=== PATIENT | female | born 1960 | race Caucasian/White ===

== ENCOUNTER 2019-10-14 18:53 | Inpatient (IN) | payer OTHER, SELFPAY ==
[2019-10-14] VITALS (7 sets, daily range): BP systolic 136–149; BP diastolic 64–93; PULSE 66–76; RESP 15–18; TEMP 36.5–37; O2SAT 96–100; BMI 60.6; BMI 59.8; BMI 59.9
--- NOTE | 2019-10-14 19:48 | EKG12_ITS ---
Test Reason : DYSRHYTHMIA Blood Pressure : / mmHG Vent. Rate : 058 BPM Atrial Rate : 058 BPM P-R Int : 152 ms QRS Dur : 146 ms QT Int : 526 ms P-R-T Axes : 026 042 116 degrees QTc Int : 516 ms Sinus bradycardia Right bundle branch block T wave abnormality, consider lateral ischemia Abnormal ECG Confirmed by GHASSAN KESSLER ([id number]), photography editor JANET LIU ([id number]) on 10/18/2019 9:25:24 AM Referred By: Confirmed By:GHASSAN KESSLER
--- NOTE | 2019-10-14 19:48 | RAD_ITS ---
STUDY: X-RAY CHEST REASON FOR EXAM: Female, 58 years old. SOB TECHNIQUE: Single frontal view of the chest. COMPARISON: March 03, 2017 FINDINGS: There is no new focal consolidation. Normal size heart. Normal mediastinum and nandini. Normal visualized pulmonary arteries. Normal visualized aortic arch and descending thoracic aorta. There are diffuse degenerative changes of the visualized thoracic spine. Normal visualized ribs, clavicles, and shoulders. There is no demonstrated abnormality of the visualized soft tissue structures of the upper abdomen. RAD/Chest 1 View (Portable) IMPRESSION: No acute cardiopulmonary process. Electronically Signed: Dianne Oleary MD at 20:07 EST Tel , Service support ,
[2019-10-14 20:38] LABS: Absolute Lymphocyte Count 1.65 X10^3/uL (0.83-4.51); Absolute Neutrophil Count 3.3 X10^3/uL (2.0-7.7); Basophil# 0.05 X10^3/uL; Basophil% 0.9 % (0-1); Eosinophil# 0.19 X10^3/uL; Eosinophils% 3.4 % (0-5); Hematocrit 34.7 % (37-47); Hemoglobin 11.2 g/dL (12.0-15.0); Lymphocyte # 1.65 X10^3/ul (4.0); Lymphocyte % 29.3 % (19-41); Mean Corp Hgb Conc 32.3 g/dL (32-36); Mean Platelet Vol. 10.5 fl (6.2-12.0); Monocyte# 0.45 X10^3/uL; NRBC Flagged by Analyzer 0 % (0-5); Neutrophil # 3.29 X10^3/uL (2.7-7.7); Neutrophil % 58.2 % (47-70); Platelet Count 186 K/mm3 (150-450); RBC Distribution Width CV 15.5 % (11.6-14.6); RBC Distribution Width SD 53.1 fl (35.1-43.9); Red Blood Count 3.73 M/mm3 (4.2-5.4); White Blood Count 5.6 K/mm3 (4.4-11.0)
--- NOTE | 2019-10-14 20:42 | ED.VISSUMM ---
- ER Visit Summary Date of Service: 10/14/19 Chief Complaint: Shortness of breath History of Present Illness: The patient is a 58 F presenting with shortness of breath. Patient states she has had increasing lower extremity swelling for the past 3 weeks. She has gained 18 pounds in the past 3 weeks. She has been more short of breath today. Shortness of breath is worsened with exertion. She denies chest pain. She called her primary care physician and was advised to come to the ED. She is on Lasix but states she does not have a history of CHF. She does not have home O2. Physical Examination: Vitals are stable. Patient is afebrile. Alert no acute distress. HEENT exam is unremarkable. Neck is supple. Lungs are clear and equal bilaterally. Heart is regular rate and rhythm. Abdomen is soft nontender nondistended. Extremities symmetric edema Skin is warm and dry. No focal neurologic deficit. Remainder of exam is unremarkable. Emergency Department Course and Treatment: EKG is sinus bradycardia rate of 58 with lateral T wave inversion, changed from previous. Chest x-ray shows no acute cardiopulmonary process. CBC shows hemoglobin 11.2. Chemistries show potassium 3.0. Troponin 0.022. She was given potassium oral replacement. She was given Lasix IV. Discussed with the hospitalist for admission. Disposition: Admission Impression: Dyspnea on exertion, peripheral edema, EKG changes This note was generated with [employer] dictation software. It may contain incorrect words, spelling, and punctuation that were not noted in review of the chart prior to signing ED Disposition - Plan for ED Patient: Referrals: Doris Pimentel MD [Primary Care Provider] -
[2019-10-14 20:43] LABS: Anion Gap 6 (5-15); BUN 13 mg/dL (7-18); BUN/Creat Ratio 15.9 RATIO (10-20); Calcium,Total 8.7 mg/dL (8.5-10.1); Chloride 111 mmol/L (98-107); Creatinine, Serum 0.82 mg/dL (0.55-1.02); EST Glomerular Filtration Rate 76 mL/min (>60); Est Glom Filt Rate - Afr Amer 92 mL/min (>60); Estimated Creatinine Clearance 55.74 ml/min; Glucose 91 mg/dL (74-106); Sodium Level 143 mmol/L (136-145)
[2019-10-14 21:08] LABS: BNP,B-Type NATRIURETIC PEPTIDE 225.1 pg/mL (0-100)
--- NOTE | 2019-10-14 21:22 | PCM.HP.STD ---
Problem List (1) Heart failure Status: Suspected History of Present Illness Date of Admission: 10/14/19 Chief Complaint: BATISTA The patient is a 58 year old F with a significant history of morbid obesity; and peripheral edema on p.o. Lasix who presented to the emergency department with dyspnea on exertion that started about 2 weeks ago and worsened on the day of presentation. Also patient think that her bilateral lower extremity edema has worsened. Further she reports a weight gain of 18 pounds in the last 3 weeks. She denies any orthopnea or paroxysmal nocturnal dyspnea. Past Medical History Medical History: Medical History (Last Updated 10/14/19 @ 22:03 by Leobardo Patton MD) Morbid (severe) obesity due to excess calories E66.01 Allergies naproxen [From Naprosyn] Allergy (Mild, Verified 10/14/19 18:57) Swelling rofecoxib [From Vioxx] Allergy (Mild, Verified 10/14/19 18:57) Swelling aspirin Adverse Reaction (Verified 10/14/19 18:57) Upset Stomach Home Medications: Ambulatory Orders Medication Instructions Recorded Calcium Carbonate/Vitamin D3 1 each PO DAILY 10/21/13 [Calcium 600 + Vit D3 Tablet] Furosemide [Lasix] 40 mg PO DAILY 10/21/13 Multivitamins,Therapeutic 1 tablet PO DAILY 10/21/13 [Multivitamin] Omeprazole [Prilosec] 20 mg PO DAILY 10/21/13 Potassium Chloride [K-Dur] 20 meq PO QODAY 10/21/13 Surgical History: - - Laser surgery of the eye; multiple D&Cs. Lives: With Family Smoking Status: Never smoker Drugs: None - *Family History Maternal History Items: Heart Disease Paternal History Items: Cancer, Heart Disease Review of Systems Constitutional: Reports: Weight Change - 18 pounds weight gain in 3 weeks.. Denies: Chills, Fever HEENT: Denies: Head Aches, Sinus Congestion, Sinus Drainage Cardiovascular: Reports: Edema. Denies: Chest Pain, Palpitations Respiratory: Reports: Shortness of breath upon exertion. Denies: Cough, Shortness of breath at rest, Sputum production Gastrointestinal: Denies: Abdominal Pain, Nausea, Vomiting Genitourinary: Denies: Dysuria Musculoskeletal: Denies: Joint Pain, Joint Tenderness Skin: Denies: Rash, Wounds Neurological: Denies: Numbness, Tingling, Focal weakness Psychiatric: Denies: Anxiety, Depression, Homicidal Ideations, Suicidal Ideations Hematologic/ Lymphatic: Denies: Easy Bruising, Easy Bleeding VTE Information - Inpt Only VTE Present on Admission: No VTE Mechan Device Prophylaxis: None VTE Pharm Prophylaxis ordered?: Yes Patient Problems: Active and Suspected Problems (Last Updated 10/14/19 @ 22:03 by Leobardo Patton MD) Heart failure (Suspected) - Physical Exam Vitals/I&O's: Vital Signs Temp Pulse Resp BP Pulse Ox 98.6 F 67 15 142/65 H 96 10/14/19 18:54 10/14/19 20:23 10/14/19 20:23 10/14/19 20:23 10/14/19 20:23 Oxygen Delivery Method Room Air Weight: 145.6 kg Body Mass Index (BMI) 60.6 General: Alert, Oriented x3, Cooperative, - - Obese HEENT: Atraumatic, PERRLA, EOMI, Normocephalic Neck: Supple, No JVD, Negative Carotid Bruits Lungs: Clear to auscultation, Normal air movement Cardiovascular: Regular rate, Normal S1, Normal S2, No murmurs Abdomen: Bowel Sounds Present, Soft, Non Tender Extremities: Capillary Refill Less than 3 Seconds, Edema - biateral lower ext; right more than left Skin: No breakdown, - - Maculopapular rash on face Musculoskeletal: No Tenderness to Palpation of Joints or Extremities Neurological: Cranial nerves II-XII grossly intact Psych/Mental Status: Normal Affect, Appropriate Laboratory Results 10/14/19 20:20: WBC 5.6, RBC 3.73 L, Hgb 11.2 L, Hct 34.7 L, MCV 93.0, MCH 30.0, MCHC 32.3, RDW Std Deviation 53.1 H, RDW Coeff of Wolf 15.5 H, Plt Count 186, MPV 10.5, Immature Gran % (Auto) 0.200, Neut % (Auto) 58.2, Lymph % (Auto) 29.3, Smyth % (Auto) 8.0, Eos % (Auto) 3.4, Baso % (Auto) 0.9, Absolute Neuts (auto) 3.3, Absolute Lymphs (auto) 1.65, Nucleated RBC % 0 10/14/19 20:20: Sodium 143, Potassium 3.0 L, Chloride 111 H, Carbon Dioxide 26.0, Anion Gap 6, BUN 13, Creatinine 0.82, Estim Creat Clear Calc 55.74, Est GFR (MDRD) Af Amer 92, Est GFR (MDRD) Non-Af 76, BUN/Creatinine Ratio 15.9, Glucose 91, Calcium 8.7, Troponin I 0.022 10/14/19 20:20: B-Natriuretic Peptide 225.1 H Assessment/Plan The patient is a 58 year old F with a significant history of morbid obesity; and peripheral edema on p.o. Lasix who presented to the emergency department with dyspnea on exertion that started about 2 weeks ago and worsened on the day of presentation; weight gain of 18 pounds in the last 3 weeks; and worsening of peripheral edema consistent with probable new onset Heart Failure and also found to have new T wave inversions in lateral leads. Probable heart failure Chest x-ray interpreted by me showed vascular congestion Place on monitored bed on PCU Weight on admission to the floor; and then daily BMP is 225.1 Strict I&O's EKG independently reviewed confirms T wave inversion in leads I and aVL changed from previous. And unchanged T wave inversion in leads V1 and V2. Emergency department labs reviewed showed hypokalemia. Discussed with emergency department doctor who will replace potassium. On home Lasix 40 mg daily. Discussed emergent department doctor will give patient Lasix 40 mg IV. Diuresis with Lasix 40 mg IV twice daily and supplement potassium. Monitor electrolytes and renal function Trend blood pressure Michael wrap to bilateral lower extremities. Elevate bilateral lower extremities Fluid restriction of 1500 mls daily 2 g cardiac diet Discussed the case with client server programmer, Dr. Shah who will follow patient. Patient will be n.p.o. after midnight. T wave inversion Patient is allergic to aspirin. Repeat EKG. Check lipid levels. Morbid obesity Lifestyle modification discussed. DVT prophylaxis Heparin subcutaneous. Code Visit Inpatient E&M: 88004 Init Hosp L3
[2019-10-14] MEDS: Furosemide 40 MG/4 ML Vial IV (21:39)
[2019-10-14] MEDS: Heparin Injection (Vial) 5,000 UNIT/ML VIAL 5000 UNIT SC (23:34)
[2019-10-15] VITALS (10 sets, daily range): BP systolic 129–146; BP diastolic 61–97; PULSE 66–94; RESP 16–18; TEMP 36.6–37.4; O2SAT 93–100
[2019-10-15 02:14] LABS: Absolute Lymphocyte Count 1.57 X10^3/uL (0.83-4.51); Absolute Neutrophil Count 2.5 X10^3/uL (2.0-7.7); Basophil# 0.05 X10^3/uL; Basophil% 1.1 % (0-1); Eosinophils% 4.3 % (0-5); Hematocrit 32.2 % (37-47); Hemoglobin 10.4 g/dL (12.0-15.0); Lymphocyte # 1.57 X10^3/ul (4.0); Lymphocyte % 33.5 % (19-41); Mean Corp Hgb Conc 32.3 g/dL (32-36); Mean Corpuscular Hgb 30.5 pg (27.0-32.0); Mean Corpuscular Volume 94.4 fL (81-99); Mean Platelet Vol. 10.2 fl (6.2-12.0); Monocyte# 0.32 X10^3/uL; Monocyte% 6.8 % (0-10); NRBC Flagged by Analyzer 0 % (0-5); Neutrophil # 2.54 X10^3/uL (2.7-7.7); Neutrophil % 54.1 % (47-70); Platelet Count 161 K/mm3 (150-450); RBC Distribution Width CV 15.4 % (11.6-14.6); RBC Distribution Width SD 53.4 fl (35.1-43.9); Red Blood Count 3.41 M/mm3 (4.2-5.4); White Blood Count 4.7 K/mm3 (4.4-11.0)
[2019-10-15 02:39] LABS: Anion Gap 5 (5-15); BUN 11 mg/dL (7-18); BUN/Creat Ratio 15.6 RATIO (10-20); Calcium,Total 8.1 mg/dL (8.5-10.1); Chloride 113 mmol/L (98-107); Cholesterol 161 mg/dL (200); Creatinine, Serum 0.71 mg/dL (0.55-1.02); EST Glomerular Filtration Rate 90 mL/min (>60); Est Glom Filt Rate - Afr Amer 109 mL/min (>60); Estimated Creatinine Clearance 64.38 ml/min; Glucose 89 mg/dL (74-106); High Density Lipoprotein 44 mg/dL; Potassium 3.2 mmol/L (3.5-5.1); Sodium Level 146 mmol/L (136-145); Triglycerides 77 mg/dL; Very Low Density Lipoprotein 15 mg/dL (5-40)
[2019-10-15] MEDS: Heparin Injection (Vial) 5,000 UNIT/ML VIAL 5000 UNIT SC ×3 (05:52→21:16)
--- NOTE | 2019-10-15 07:57 | ECHOD_ITS ---
Reason For Study: Dyspnea/SOB Procedure This was a 2D Doppler, Color Flow transthoracic echocardiogram. Exam performed portable in patient room. Left Ventricle Normal LV size. Mild concentric left ventricular hypertrophy. Left ventricular systolic function is normal. The estimated ejection fraction is 60 %. No regional wall motion abnormalities noted. Right Ventricle Normal RV size. Normal systolic function. Atria The left atrium is mildly enlarged. Normal right atrium. Mitral Valve Normal mitral valve. Mild (1+) eccentric mitral valve insufficiency. Tricuspid Valve Normal tricuspid valve. Aortic Valve Normal aortic valve. Trisinus/trileaflet aortic valve. Pulmonic Valve Normal pulmonic valve. Great Vessels Normal aortic root. The pulmonary artery is normal size. Normal inferior vena cava. Pericardium/Pleural No pericardial effusion. MMode/2D Measurements & Calculations LVIDd: 4.9 cm IVSd: 1.2 cm Ao root diam: 3.2 cm LVIDs: 3.1 cm LVPWd: 1.3 cm LA dimension: 4.9 cm FS: 37.6 % LAV(MOD-bp): 97.0 ml LA A4 area: 23.1 cm2 RA A4 area: 19.0 cm2 LAV(MOD-bp) Indexed: 42.3 ml/m2 LAV(MOD-sp2): 94.5 ml LAV(MOD-sp4): 82.6 ml Time Measurements MV dec time: 0.22 sec Doppler Measurements & Calculations MV E max pj: 97.8 cm/sec Lat Peak E' Pj: 13.8 cm/sec Med Peak E' Pj: 8.8 cm/sec MV A max pj: 81.5 cm/sec E/E' lat: 7.1 E/E' med: 11.1 MV E/A: 1.2 MV V2 max: 130.3 cm/sec MV P1/2t max pj: 128.6 cm/sec Ao V2 max: 159.4 cm/sec MV max P.8 mmHg MV P1/2t: 78.3 msec Ao max P.2 mmHg MV V2 mean: 66.4 cm/sec MV dec slope: 480.8 cm/sec2 MV mean P.1 mmHg MVA(P1/2t): 2.8 cm2 MV V2 VTI: 33.6 cm LV V1 max: 122.1 cm/sec MR max pj: 542.6 cm/sec PA V2 max: 137.7 cm/sec LV V1 max P.0 mmHg MR max P.7 mmHg MR mean pj: 435.3 cm/sec MR mean P.9 mmHg MR VTI: 196.6 cm Interpretation Summary Normal LV size. Mild concentric left ventricular hypertrophy. Left ventricular systolic function is normal. The estimated ejection fraction is 60 %. Mild (1+) eccentric mitral valve insufficiency. Ordering Physician: Jason Shah Referring Physician: Doris Pimentel Performed By: Jose Braden RCS
--- NOTE | 2019-10-15 07:59 | CON.PCM_ITS ---
Reason for Consult Date of Consultation: 10/15/19 Reason for Consultation: Shortness of breath and EKG changes History of Present Illness: The patient is a 58 year old F with no previous cardiac history other than hypertension who says that she has been increasingly short of breath over the last 3 weeks or so as well as has developed pedal edema. She went to see her primary physician and was advised to come to the emergency room. She denies any chest pain or paroxysmal nocturnal dyspnea. She has had a cough. She was seen in the emergency room blood work done an EKG was also done. She was noted to have T wave inversions in the lateral leads and I was called for consultation and consideration of a possible stress test. [] Past Medical History Allergies/Adverse Reactions: Allergies naproxen [From Naprosyn] Allergy (Mild, Verified 10/14/19 18:57) Swelling rofecoxib [From Vioxx] Allergy (Mild, Verified 10/14/19 18:57) Swelling aspirin Adverse Reaction (Verified 10/14/19 18:57) Upset Stomach Home Medications: Ambulatory Orders Medication Instructions Recorded Calcium Carbonate/Vitamin D3 1 each PO DAILY 10/21/13 [Calcium 600 + Vit D3 Tablet] Furosemide [Lasix] 40 mg PO DAILY 10/21/13 Multivitamins,Therapeutic 1 tablet PO DAILY 10/21/13 [Multivitamin] Omeprazole [Prilosec] 20 mg PO DAILY 10/21/13 Potassium Chloride [K-Dur] 20 meq PO QODAY 10/21/13 Surgical History: - - Laser surgery of the eye; multiple D&Cs. - *Family History Maternal History Items: Heart Disease Paternal History Items: Cancer, Heart Disease Lives: With Family Smoking Status: Never smoker Alcohol: None Drugs: None Review of Systems - Review of Systems General: Denies: Fever, Night Sweats, Fatigue HEENT: Denies: Vision Change Cardiovascular: Reports: Shortness of Breath, Shortness of Breath at Rest, Shortness of Breath with Exertion, Peripheral Edema. Denies: Chest Discomfort, Orthopnea, PND, Palpitations, Lightheadedness, Dizziness, Near Syncope, Syncope Respiratory: Denies: Cough, Sputum Production, Hemoptysis Gastrointestinal: Denies: Hematemesis, Hematochezia, Melena Genitourinary: Denies: Dysuria, Hematuria Muscoloskeletal: Denies: Myalgias Skin: Denies: Rash Neurological: Denies: Dizziness Psychiatric: Denies: Anxiety Endocrine: Denies: Heat Intolerance Hematologic/ Lymphatic: Denies: Lymph Node Enlargement Subjectve: Patient seen and evaluated. Objective: Vital Signs Temp Pulse Resp BP Pulse Ox 97.8 F 77 16 129/64 H 95 10/15/19 04:55 10/15/19 06:50 10/15/19 04:55 10/15/19 04:55 10/15/19 04:55 Oxygen Delivery Method Room Air Weight: 315 lb 11.231 oz Body Mass Index (BMI) 59.8 Intake and Output for Last 24 Hours 10/13/19 10/14/19 10/15/19 23:59 23:59 23:59 Output Total 400 / 400 Balance -400 / -400 General: Awake, Alert, Oriented x 3 HEENT: PERRL, EOMI, Sclera Non Icteric Neck: Supple, Good ROM, No Lymph Node Enlargement Lungs: Diminished Iggy Bases Cardiovascular: Regular Rhythm, Normal S1, Normal S2, No Murmurs, No Rubs, No Gallops Vascular: No Carotid Bruits, Normal Femoral Pulses, Normal Radial Pulses, Normal Dorsalis Pedal Pulse, Normal Posterior Tibial Pulses Abdomen: Bowel Sounds Present, Soft, Non Tender, No HSM, No Organomegaly Extremities: No Cyanosis, No Clubbing, Bilateral Edema +1 Musculoskeletal: No Erythema Skin: No Rashes Lymphatic: No Lymph Node Enlargement Neurological: No Focal Motor or Sensory Deficit Psych/Mental Status: Appropriate 10/14/19 20:20: WBC 5.6, RBC 3.73 L, Hgb 11.2 L, Hct 34.7 L, MCV 93.0, MCH 30.0, MCHC 32.3, Plt Count 186, MPV 10.5, Immature Gran % (Auto) 0.200, Neut % (Auto) 58.2, Lymph % (Auto) 29.3, [place] % (Auto) 8.0, Eos % (Auto) 3.4, Baso % (Auto) 0.9, Absolute Neuts (auto) 3.3, Nucleated RBC % 0 10/14/19 20:20: Sodium 143, Potassium 3.0 L, Chloride 111 H, Carbon Dioxide 26.0, Anion Gap 6, BUN 13, Creatinine 0.82, Est GFR (MDRD) Af Amer 92, Est GFR (MDRD) Non-Af 76, BUN/Creatinine Ratio 15.9, Glucose 91, Calcium 8.7, Troponin I 0.022 10/14/19 20:20: B-Natriuretic Peptide 225.1 H 10/14/19 23:18: Troponin I 0.019 10/15/19 02:03: Sodium 146 H, Potassium 3.2 L, Chloride 113 H, Carbon Dioxide 28.0, Anion Gap 5, BUN 11, Creatinine 0.71, Est GFR (MDRD) Af Amer 109, Est GFR (MDRD) Non-Af 90, BUN/Creatinine Ratio 15.6, Glucose 89, Calcium 8.1 L, Triglycerides 77, Cholesterol 161, LDL Cholesterol 102, VLDL Cholesterol 15, HDL Cholesterol 44 10/15/19 02:03: WBC 4.7, RBC 3.41 L, Hgb 10.4 L, Hct 32.2 L, MCV 94.4, MCH 30.5, MCHC 32.3, Plt Count 161, MPV 10.2, Immature Gran % (Auto) 0.200, Neut % (Auto) 54.1, Lymph % (Auto) 33.5, [place] % (Auto) 6.8, Eos % (Auto) 4.3, Baso % (Auto) 1.1 H, Absolute Neuts (auto) 2.5, Nucleated RBC % 0 10/15/19 02:03: Troponin I 0.024 Rhythm: EKG: Normal sinus rhythm with T wave inversions noted in 1 and aVL. Prolonged QT interval noted ECHO: Stress Test: Cardiac Cath: PCI: CT Surgery: Holter monitor: EPS: PPM: CXR: Chest CT Scan: Assessment/Plan 1. Shortness of breath * Patient presents with shortness of breath and pedal edema and is noted to have an elevated natruretic peptide level. Due to her obesity it is likely that her natruretic peptide level is falsely low. I would like us to obtain an echocardiogram to assess her left ventricular function. Depending on the results further recommendations will be made to decide on the appropriate medications. * She will in the meantime continue with her intravenous Lasix. * 2. Abnormal EKG changes * She is noted to have abnormal EKG changes which is likely secondary to the hypokalemia with prolonged QT interval. * Would replace potassium and magnesium and repeat EKG. * At this particular time I do not think that her EKG changes are suggestive of ischemia and a stress test is not necessarily warranted. * * Thank you for allowing me to participate in the care of your patient. Please don't hesitate to call if any issues arise
[2019-10-15 08:30] LABS: Magnesium 2.1 mg/dL (1.6-2.6)
[2019-10-15] MEDS: Calcium Carb/Vitamin D 1 TABLET Tablet PO (09:28)
[2019-10-15] MEDS: Furosemide 40 MG/4 ML Vial IV ×2 (09:28→17:03)
[2019-10-15] MEDS: 0.9% Saline Lock 10 ML Syringe IV ×2 (09:28→17:03)
[2019-10-15] MEDS: Multivitamins,Therapeutic Tablet 1 TABLET PO (09:28)
[2019-10-15] MEDS: Pantoprazole Sodium 20 MG Tablet PO (09:28)
--- NOTE | 2019-10-15 09:37 | PN_ITS ---
Patient Problems: Active and Suspected Problems (Last Updated 10/14/19 @ 22:03 by Leobardo Patton MD) Heart failure (Suspected) Subjective: Feels little bit better, less short of breath and states that her swelling is little bit improved Vitals/I&O's: Vital Signs Temp Pulse Resp BP Pulse Ox 98.1 F 66 16 134/68 H 94 10/15/19 09:21 10/15/19 09:21 10/15/19 09:21 10/15/19 09:21 10/15/19 09:21 Oxygen Delivery Method Room Air Weight: 315 lb 11.231 oz Body Mass Index (BMI) 59.8 Intake and Output for Last 24 Hours 10/13/19 10/14/19 10/15/19 23:59 23:59 23:59 Output Total 400 / 400 Balance -400 / -400 General: Alert, Oriented x3, Cooperative, No apparent distress HEENT: Atraumatic, PERRLA, EOMI, Normocephalic Oral: Moist Mucosa Neck: Supple, No JVD Lungs: Clear to auscultation, Normal air movement, No rhonchi, No wheeze, No rales, Diminished Cardiovascular: Regular rate, Regular Rhythm, Normal S1, Normal S2, No murmurs Abdomen: Soft, Non Tender, Non-Distended, No Hepato-splenomegaly Extremities: Capillary Refill Less than 3 Seconds, Edema - 1+ pitting edema bilaterally Skin: No rashes, No breakdown Neurological: Neuro grossly intact, Sensory exam intact to light touch and pain Psych/Mental Status: Normal Affect, Appropriate Laboratory Results 10/14/19 20:20: WBC 5.6, RBC 3.73 L, Hgb 11.2 L, Hct 34.7 L, MCV 93.0, MCH 30.0, MCHC 32.3, RDW Std Deviation 53.1 H, RDW Coeff of Wolf 15.5 H, Plt Count 186, MPV 10.5, Immature Gran % (Auto) 0.200, Neut % (Auto) 58.2, Lymph % (Auto) 29.3, Payne % (Auto) 8.0, Eos % (Auto) 3.4, Baso % (Auto) 0.9, Absolute Neuts (auto) 3.3, Absolute Lymphs (auto) 1.65, Nucleated RBC % 0 10/14/19 20:20: Sodium 143, Potassium 3.0 L, Chloride 111 H, Carbon Dioxide 26.0, Anion Gap 6, BUN 13, Creatinine 0.82, Estim Creat Clear Calc 55.74, Est GFR (MDRD) Af Amer 92, Est GFR (MDRD) Non-Af 76, BUN/Creatinine Ratio 15.9, Glucose 91, Calcium 8.7, Troponin I 0.022 10/14/19 20:20: B-Natriuretic Peptide 225.1 H 10/14/19 23:18: Troponin I 0.019 10/15/19 02:03: Sodium 146 H, Potassium 3.2 L, Chloride 113 H, Carbon Dioxide 28.0, Anion Gap 5, BUN 11, Creatinine 0.71, Estim Creat Clear Calc 64.38, Est GFR (MDRD) Af Amer 109, Est GFR (MDRD) Non-Af 90, BUN/Creatinine Ratio 15.6, Glucose 89, Calcium 8.1 L, Triglycerides 77, Cholesterol 161, LDL Cholesterol 102, VLDL Cholesterol 15, HDL Cholesterol 44 10/15/19 02:03: WBC 4.7, RBC 3.41 L, Hgb 10.4 L, Hct 32.2 L, MCV 94.4, MCH 30.5, MCHC 32.3, RDW Std Deviation 53.4 H, RDW Coeff of Wolf 15.4 H, Plt Count 161, MPV 10.2, Immature Gran % (Auto) 0.200, Neut % (Auto) 54.1, Lymph % (Auto) 33.5, Payne % (Auto) 6.8, Eos % (Auto) 4.3, Baso % (Auto) 1.1 H, Absolute Neuts (auto) 2.5, Absolute Lymphs (auto) 1.57, Nucleated RBC % 0 10/15/19 02:03: Troponin I 0.024 10/15/19 02:03: Magnesium 2.1 Current Medications Acetaminophen (Tylenol) 650 mg PO Q6H PRN PRN PRN Reason: Pain Score 1-10/Temp > 100.7 F Calcium/Vitamin D (Os-Pedro Pablo 500mg + D) 1 tablet PO DAILY [facility] Last Admin: 10/15/19 09:28 Dose: 1 tablet Documented by: Furosemide (Lasix) 40 mg IV BIDLX [facility] Last Admin: 10/15/19 09:28 Dose: 40 mg Documented by: Glucagon () 1 mg IM .X1 PRN PRN Reason: Hypoglycemia Heparin Sodium (Porcine) (Heparin Na) 5,000 unit SC Q8 [facility] Last Admin: 10/15/19 05:52 Dose: 5,000 unit Documented by: Dextrose (Dextrose 10%-Water) 250 mls @ 999 mls/hr IV .Q16M PRN; Protocol PRN Reason: HYPOGLYCEMIA [facility] Admin: 10/15/19 09:28 Dose: 1 tablet Documented by: Ondansetron HCl (Zofran) 4 mg IV Q8H PRN PRN PRN Reason: NAUSEA/VOMITING Pantoprazole Sodium (Protonix) 20 mg PO DAILY [facility] Last Admin: 10/15/19 09:28 Dose: 20 mg Documented by: Potassium [facility]) [facility] Last Admin: 10/15/19 09:27 Dose: 40 meq Documented by: Sodium Chloride () 10 - 40 ml IV UD PRN PRN Reason: SALINE FLUSH Last Admin: 10/15/19 09:28 Dose: 20 ml Documented by: STROKE Vital Signs/Narrative: Vital Signs Temp Pulse Resp BP Pulse Ox 10/15/19 09:21 98.1 F 66 16 134/68 H 94 10/15/19 08:09 95 10/15/19 06:50 77 Medical Necessity - Tobacco Use Smoking Status: Never smoker Assessment/Plan 1. Shortness of breath likely secondary to heart failure of unknown type/hypokalemia -We will continue with IV Lasix and fluid restriction 1500 cc -An echo is pending -Was unremarkable however her BNP was elevated -EKG with T wave inversions otherwise no signs of ischemia -Based on body weight she is down about 5 pounds -Continue with twice daily potassium repletion 2. Morbid obesity -BMI is over 50 -We will put her on a significant calorie restriction of 1400 pedro pablo a day as a cardiac diet -Counseled on lifestyle modifications and weight loss 3. GERD -Stable -Continue with PPI DVT: Heparin Code Visit Inpatient E&M: 02657 Subs Hosp L2
[2019-10-15] MEDS: Potassium Chloride 10mEq/100mL 10 MEQ/100 ML IV.SOLN. 100 MEQ IV BOLUS (10:09)
--- NOTE | 2019-10-15 13:05 | CASEMGMT ---
RN CM Assessment Note Presentation: CHF, dyspnea, weight gain 18 # over past 3 weeks, extremity edema Intro role of CM and purpose of RN CM assessment to patient in room. Demographics, PCP and Pharmacy verified. PT states she is independent at home, works, drives. PT/OT evaluations pending. Pt states she has a scale, noted significant weight gain and edema, but did not f/u with physician. Pt states she will be more aware on dc of following any weight gain or increased edema and contacting physician sooner. No oxyen use at home or presently in hospital. PCP: Dr. Pimentel Specialists: Dr. Shah [facility] M[facility] Prescription Benefit: yes LNOK: Bryan Dougherty, Living Arrangements: Lives in one story, ramp into home. Pt states she is generally independent with ADL. Has difficulty getting into tub/shower. No grab bars. Discussed tub bench, however pt states her bathroom is small and it would be in way. Also discussed benefits of grab bars for shower. Pt was going to have tub/shower converted to shower last year, but states now she does not have the money for this. Transportation: Drives, or son can drive DME: walker only. HHC/SNF: none in past per pt. Patient DC goals: Home on dc DC PLAN: Home on dc. PT/OT evaluations pending. Guille SINGER RN ACM
--- NOTE | 2019-10-15 15:25 | CHAPLAIN ---
Type of Pastoral Visit _x__ Initial Visit ___ Follow-up Visit ___ On-call Visit ___ General Patient Visit ___ Spiritual Assessment ___ Family Conference ___ Bereavement ___ Rapid Response ___ Code Blue ___ Other (describe below) Pastoral Care Referral From _x__ Patient ___ Family ___ Nurse ___ Physician ___ Bottom Worker ___ Pipe Or Steam Fitter Furnace Installer ___ Other (describe below) Sacrament/Intervention _x__ Active listening ___ Anointing ___ Baptist ___ Bereavement ___ Communion _x__ Estrella exploration ___ _x__ Life review _x__ Prayer ___ Reconciliation ___ Sacrament of Sick _x__ Supportive presence ___ Wedding ___ Other (describe below) Pastoral Comments called her mobile practice lead and islam as requested
[2019-10-16] VITALS (7 sets, daily range): BP systolic 132–143; BP diastolic 65–74; PULSE 62–78; RESP 16–18; TEMP 36.4–36.9; O2SAT 93–100
[2019-10-16 04:31] LABS: Absolute Lymphocyte Count 1.39 X10^3/uL (0.83-4.51); Absolute Neutrophil Count 3.3 X10^3/uL (2.0-7.7); Basophil# 0.04 X10^3/uL; Basophil% 0.8 % (0-1); Eosinophil# 0.09 X10^3/uL; Eosinophils% 1.7 % (0-5); Hematocrit 36.5 % (37-47); Hemoglobin 11.1 g/dL (12.0-15.0); Lymphocyte # 1.39 X10^3/ul (4.0); Lymphocyte % 26.2 % (19-41); Mean Corp Hgb Conc 30.4 g/dL (32-36); Mean Corpuscular Hgb 29.8 pg (27.0-32.0); Mean Corpuscular Volume 97.9 fL (81-99); Mean Platelet Vol. 10.3 fl (6.2-12.0); Monocyte# 0.51 X10^3/uL; Monocyte% 9.6 % (0-10); NRBC Flagged by Analyzer 0 % (0-5); Neutrophil # 3.26 X10^3/uL (2.7-7.7); Neutrophil % 61.5 % (47-70); Platelet Count 167 K/mm3 (150-450); RBC Distribution Width CV 15.1 % (11.6-14.6); Red Blood Count 3.73 M/mm3 (4.2-5.4); White Blood Count 5.3 K/mm3 (4.4-11.0)
[2019-10-16] MEDS: Heparin Injection (Vial) 5,000 UNIT/ML VIAL 5000 UNIT SC ×2 (05:06→13:50)
[2019-10-16 05:13] LABS: Anion Gap 4 (5-15); BUN 12 mg/dL (7-18); BUN/Creat Ratio 17.2 RATIO (10-20); Calcium,Total 8.1 mg/dL (8.5-10.1); Chloride 114 mmol/L (98-107); EST Glomerular Filtration Rate 91 mL/min (>60); Est Glom Filt Rate - Afr Amer 111 mL/min (>60); Glucose 86 mg/dL (74-106); Potassium 3.9 mmol/L (3.5-5.1); Sodium Level 140 mmol/L (136-145)
[2019-10-16] MEDS: Calcium Carb/Vitamin D 1 TABLET Tablet PO (09:16)
[2019-10-16] MEDS: Furosemide 40 MG/4 ML Vial IV (09:16)
[2019-10-16] MEDS: Multivitamins,Therapeutic Tablet 1 TABLET PO (09:16)
[2019-10-16] MEDS: Pantoprazole Sodium 20 MG Tablet PO (09:16)
[2019-10-16] MEDS: 0.9% Saline Lock 10 ML Syringe IV (09:16)
--- NOTE | 2019-10-16 12:51 | SUR.HOLD ---
Type of Pastoral Visit ___ Initial Visit _x__ Follow-up Visit ___ On-call Visit ___ General Patient Visit ___ Spiritual Assessment ___ Family Conference ___ Bereavement ___ Rapid Response ___ Code Blue ___ Other (describe below) Pastoral Care Referral From _x__ Patient ___ Family ___ Nurse ___ Physician ___ Lacquer Maker ___ Jewelry Casting Model Maker ___ Other (describe below) Sacrament/Intervention _x__ Active listening ___ Anointing ___ Mormon ___ Bereavement ___ Communion ___ Estrella exploration ___ ___ Life review _x__ Prayer ___ Reconciliation ___ Sacrament of Sick _x__ Supportive presence ___ Wedding ___ Other (describe below) Pastoral Comments
--- NOTE | 2019-10-16 15:20 | DCINST_ITS ---
You will use the following diet at home:: Calorie/Carbohydrate Controlled (specify 1200, 1400, etc) - 1400, Cardiac, Fluid restricted (specify 2000 mls, 1500 mls) - 1500 Your food should be the consistency of: Regular Your liquids should be the consistency of: Regular/Thin Discharge Activity: Return to Normal Activity Call your doctor if you observe: Fever of 101 or Higher, Shortness of breath, Dizziness, Fainting spells, Swelling in the ankles, Chest pain, Increased palpitations (irregular heartbeat) Additional Instructions: Obtain a BMP by your PCP to evaluate your kidney function and potassium Allergies/Adverse Reactions: Allergies naproxen [From Naprosyn] Allergy (Mild, Verified 10/14/19 18:57) Swelling rofecoxib [From Vioxx] Allergy (Mild, Verified 10/14/19 18:57) Swelling aspirin Adverse Reaction (Verified 10/14/19 18:57) Upset Stomach Medications to take at Discharge Calcium Carbonate/Vitamin D3 [Calcium 600-Vit D3 800 Tablet] 1 each PO DAILY 10/21/13 Multivitamins,Therapeutic [Multivitamin] 1 tablet PO DAILY 10/21/13 Omeprazole [Prilosec] 20 mg PO DAILY 10/21/13 Furosemide [Lasix] 40 mg PO BIDLX #60 tab 10/16/19 Potassium Chloride [K-Dur] 20 meq PO DAILY #0 10/16/19 The following prescriptions were given: Furosemide [Lasix] 40 mg PO BIDLX #60 tab Transmission Status: Pending to [facility] Primary Care Physician: Doris Pimentel MD [Primary Care Provider] - Please follow up with your Primary Care Physician in: 3-5 days Test Results: Test results from this visit will be discussed in further detail at your follow- up appointment, if applicable.
--- NOTE | 2019-10-16 15:25 | DS.PCM_ITS ---
Discharge Date and Diagnosis - Problem List Patient Problems: Active and Suspected Problems (Last Updated 10/14/19 @ 22:03 by Leobardo Patton MD) Heart failure (Suspected) Date of Admission: 10/14/19 Date of Discharge: 10/16/19 - Primary Discharge Diagnosis Active and Suspected Problems (Last Updated 10/14/19 @ 22:03 by Leobardo Patton MD) Heart failure (Suspected) Hospital Course and Treatment Imaging Results: CXR: IMPRESSION: No acute cardiopulmonary process. Echo: Interpretation Summary Normal LV size. Mild concentric left ventricular hypertrophy. Left ventricular systolic function is normal. The estimated ejection fraction is 60 %. Mild (1+) eccentric mitral valve insufficiency. Consults: Cardiology Operations: None Procedures: 2-D Echocardiogram Summary of Care Provided: Per HPI: The patient is a 58 year old F with a significant history of morbid obesity; and peripheral edema on p.o. Lasix who presented to the emergency department with dyspnea on exertion that started about 2 weeks ago and worsened on the day of presentation. Also patient think that her bilateral lower extremity edema has worsened. Further she reports a weight gain of 18 pounds in the last 3 weeks. She denies any orthopnea or paroxysmal nocturnal dyspnea. Hospital Course: 1. Acute diastolic heart [id number] female with morbid obesity and peripheral edema presents with increasing shortness of breath and dyspnea on exertion. She states that she was told that to get rid of water she should drink more water and so she had an 18 pound weight gain over the last 3 weeks. She is started on IV Lasix twice daily as well as a fluid restriction and she is down about 10 pounds since admission. Echo demonstrated mild left ventricular concentric hypertrophy with normal EF therefore it was felt that she likely had a component of diastolic heart failure. Will plan for discharge home on Lasix 40 mg p.o. twice daily with follow-up to cardiology as well as her PCP. I do recommend she obtain a BMP as an outpatient by her PCP to evaluate her kidney function as well as her potassium. Her potassium was low on admission and was repleted to a level of 3.9 on the day of discharge. I discussed the discharge plan with her and her family and they all expressed understanding of the risks and benefits of going home. 2. Her other medical diagnoses were evaluated and her home medications were continued where appropriate Patient Problems: Active and Suspected Problems (Last Updated 10/14/19 @ 22:03 by Leobardo Patton MD) Heart failure (Suspected) - Physical Exam Vitals/I&O's: Vital Signs Temp Pulse Resp BP Pulse Ox 97.6 F L 63 16 143/73 H 100 10/16/19 15:10 10/16/19 15:10 10/16/19 15:10 10/16/19 15:10 10/16/19 15:10 Oxygen Flow Rate (L/min) 3 Oxygen Delivery Method Room Air Weight: 307 lb 8.717 oz Body Mass Index (BMI) 59.8 Intake and Output for Last 24 Hours 10/14/19 10/15/19 10/16/19 23:59 23:59 23:59 Intake Total 1100 / 1100 460 / 460 Output Total 1800 / 1800 Balance -700 / -700 460 / 460 General: Alert, Oriented x3, Cooperative, No apparent distress HEENT: Atraumatic, PERRLA, EOMI, Normocephalic Oral: Moist Mucosa Neck: Supple, No JVD Lungs: Clear to auscultation, Normal air movement, No rhonchi, No wheeze, No rales, Diminished Cardiovascular: Regular rate, Regular Rhythm, Normal S1, Normal S2, No murmurs Abdomen: Soft, Non Tender, Non-Distended, No Hepato-splenomegaly Extremities: Capillary Refill Less than 3 Seconds, Edema - 1+ pitting edema bilaterally Skin: No rashes, No breakdown Neurological: Neuro grossly intact, Sensory exam intact to light touch and pain Psych/Mental Status: Normal Affect, Appropriate Laboratory Results 10/16/19 04:16: WBC 5.3, RBC 3.73 L, Hgb 11.1 L, Hct 36.5 L, MCV 97.9, MCH 29.8, MCHC 30.4 L, RDW Std Deviation 54.0 H, RDW Coeff of Wolf 15.1 H, Plt Count 167, MPV 10.3, Immature Gran % (Auto) 0.200, Neut % (Auto) 61.5, Lymph % (Auto) 26.2, [place] % (Auto) 9.6, Eos % (Auto) 1.7, Baso % (Auto) 0.8, Absolute Neuts (auto) 3.3, Absolute Lymphs (auto) 1.39, Nucleated RBC % 0 10/16/19 04:16: Sodium 140, Potassium 3.9, Chloride 114 H, Carbon Dioxide 22.0, Anion Gap 4 L, BUN 12, Creatinine 0.70, Estim Creat Clear Calc 65.30, Est GFR (MDRD) Af Amer 111, Est GFR (MDRD) Non-Af 91, BUN/Creatinine Ratio 17.2, Glucose 86, Calcium 8.1 L Current Medications Acetaminophen (Tylenol) 650 mg PO Q6H PRN PRN PRN Reason: Pain Score 1-10/Temp > 100.7 F Calcium/Vitamin D (Os-Pedro Pablo 500mg + D) 1 tablet PO DAILY [facility] Last Admin: 10/16/19 09:16 Dose: 1 tablet Documented by: Furosemide (Lasix) 40 mg IV BIDLX [facility] Last Admin: 10/16/19 09:16 Dose: 40 mg Documented by: Glucagon () 1 mg IM .X1 PRN PRN Reason: Hypoglycemia Heparin Sodium (Porcine) (Heparin Na) 5,000 unit SC Q8 [facility] Last Admin: 10/16/19 13:50 Dose: 5,000 unit Documented by: Dextrose (Dextrose 10%-Water) 250 mls @ 999 mls/hr IV .Q16M PRN; Protocol PRN Reason: HYPOGLYCEMIA [facility]it[facility] ([facility]itamin) [facility] Admin: 10/16/19 09:16 Dose: 1 tablet Documented by: Ondansetron HCl (Zofran) 4 mg IV Q8H PRN PRN PRN Reason: NAUSEA/VOMITING Pantoprazole Sodium (Protonix) 20 mg PO DAILY [facility] Last Admin: 10/16/19 09:16 Dose: 20 mg Documented by: Potassium Chloride (K-Dur) 40 meq PO BIDCM [facility] Last Admin: 10/16/19 09:16 Dose: 40 meq Documented by: Sodium Chloride () 10 - 40 ml IV UD PRN PRN Reason: SALINE FLUSH Last Admin: 10/16/19 09:16 Dose: 10 ml Documented by: Discharge Activity: Return to Normal Activity Call your doctor if you observe: Fever of 101 or Higher, Shortness of breath, Dizziness, Fainting spells, Swelling in the ankles, Chest pain, Increased palpitations (irregular heartbeat) Home Medications: Medications to take at Discharge Calcium Carbonate/Vitamin D3 [Calcium 600-Vit D3 800 Tablet] 1 each PO DAILY 10/21/13 Multivitamins,Therapeutic [Multivitamin] 1 tablet PO DAILY 10/21/13 Omeprazole [Prilosec] 20 mg PO DAILY 10/21/13 Furosemide [Lasix] 40 mg PO BIDLX #60 tab 10/16/19 Potassium Chloride [K-Dur] 20 meq PO DAILY #0 10/16/19 Following Prescrptions Were Given to Patient: Furosemide [Lasix] 40 mg PO BIDLX #60 tab Transmission Status: Pending to [facility] Primary Care Physician: Doris Pimentel MD [Primary Care Provider] - Please follow up with your Primary Care Physician in: 3-5 days Please Follow Up With: Jason Shah MD When: 4-6 weeks Disposition: Home Minutes spent on discharge:: 35 Patient Condition:: Stable Medical Necessity - Tobacco Use Smoking Status: Never smoker Meaningful Use Info Meaningful Use Diagnoses (Choose all that apply): None applicable Code Visit Inpatient E&M: 50514 Disch Hosp
== END 2019-10-16 15:46 | disposition home or self-care (01) | DRG 291 ==
LOC: ED 19:44 → PCU 22:02
PROVIDERS: Internal Medicine Cardiovascular Disease; Admitting Provider Hospitalist; Emergency Provider Emergency Medicine; PCP Internal Medicine; Visit Provider Family Medicine
DX: I11.0 Hypertensive heart disease with heart failure (principal); I50.31 Acute diastolic (congestive) heart failure; Z68.43 Body mass index [BMI] 50.0-59.9, adult; E87.6 Hypokalemia; E66.01 Morbid (severe) obesity due to excess calories; K21.9 Gastro-esophageal reflux disease without esophagitis; Z88.6 Allergy status to analgesic agent; Z79.899 Other long term (current) drug therapy
CPT/HCPCS: 36415; 71045; 80048; 80061; 83735; 83880; 84484; 85025; 93005; 93306; 97162; 97166; 97530; 97535; 99285; J7040; Q9957; A4216; J1940

== ENCOUNTER 2019-11-17 01:07 | Emergency (ER) | payer OTHER, SELFPAY ==
[2019-10-14 23:01] VITALS: BMI 59.8
[2019-11-17 01:07] VITALS: BP 158/74; PULSE 83; RESP 16; TEMP 36.4; O2SAT 98; BMI 57.5
--- NOTE | 2019-11-17 01:25 | ED.DCSUM_ITS ---
- ER Visit Summary Date of Service: 11/17/19 Chief Complaint: Sent in for low potassium History of Present Illness: The patient is a 59 F 3 diastolic dysfunction on Lasix. Had labs drawn in the last 24 hours which are low potassium was called by her primary care physician and was sent to the emergency department. She denies any vomiting or diarrhea. No fever. Physical Examination: Older female no acute distress vital signs are stable and afebrile. Pulse ox 98% on room air no signs hypoxia. H EENT exam unremarkable. No facial droop. Neck nontender no JVD. No lymphadenopathy. Lungs clear to auscultation bilaterally. Heart regular rhythm rate about 80 no murmur. Abdomen soft nontender normal bowel sounds no peritoneal signs. Patient is moving all 4 extremities. No significant edema. Normal international manager strength bilaterally. Normal dorsi plantarflexion. Neurologically she is awake and alert with no focal motor deficits. Test Results: CBC is unremarkable white count of 7 hemoglobin 12. BMP shows low potassium at 2.7. Normal creatinine of 1 normal gap. Emergency Department Course and Treatment: Due to the patient's low potassium she will be treated with oral potassium here and also IV potassium. She will be discharged home after that. Treatment Plan: She is currently on home potassium. She will double that to 40 mg daily. Follow-up with her primary care physician have her potassium rechecked later this week. Disposition: Discharge Impression: Acute hypokalemia History of CHF on diuretic This note was generated with [employer] dictation software. It may contain incorrect words, spelling, and punctuation that were not noted in review of the chart prior to signing ED Disposition - Plan for ED Patient: Referrals: Doris Pimentel MD [Primary Care Provider] -
[2019-11-17 01:36] LABS: Hematocrit 37.6 % (37-47); Hemoglobin 12.8 g/dL (12.0-15.0); Mean Corpuscular Hgb 31.1 pg (27.0-32.0); Mean Corpuscular Volume 91.3 fL (81-99); Mean Platelet Vol. 10.3 fl (6.2-12.0); Platelet Count 254 K/mm3 (150-450); RBC Distribution Width CV 13.5 % (11.6-14.6); RBC Distribution Width SD 45.8 fl (35.1-43.9); Red Blood Count 4.12 M/mm3 (4.2-5.4); White Blood Count 7.7 K/mm3 (4.4-11.0)
[2019-11-17 01:49] LABS: Anion Gap 7 (5-15); BUN 27 mg/dL (7-18); BUN/Creat Ratio 27.1 RATIO (10-20); Calcium,Total 8.7 mg/dL (8.5-10.1); Chloride 101 mmol/L (98-107); EST Glomerular Filtration Rate 60 mL/min (>60); Est Glom Filt Rate - Afr Amer 73 mL/min (>60); Estimated Creatinine Clearance 45.14 ml/min; Glucose 100 mg/dL (74-106); Potassium 2.7 mmol/L (3.5-5.1); Sodium Level 139 mmol/L (136-145)
--- NOTE | 2019-11-17 01:57 | ED.DEP ---
ED Disposition - Plan for ED Patient: Disposition: Home or Assisted Living Instructions: Hypokalemia Referrals: Doris Pimentel MD [Primary Care Provider] - 5-7 Days Additional Instructions: Follow-up with your doctor later this week to have your potassium rechecked. Tonight in the emergency department your potassium level was 2.7. You are currently on potassium at home. You normally take 20 mEq once a day. Double that to 40 mEq once a day. You can take 2 pills at once or take 1 pill twice a day.
--- NOTE | 2019-11-17 03:02 | ED.RN ---
No charting was done in 0200 hr as it is day light savings. Please see charting in 0100 and 0300 hrs.
[2019-11-17] MEDS: 0.9% Normal Saline 1,000 ML 150 ML IV (03:15)
[2019-11-17] MEDS: Potassium Chloride 10mEq/100mL 10 MEQ/100 ML IV.SOLN. 100 MEQ IV BOLUS ×2 (03:21→04:22)
--- NOTE | 2019-11-17 03:42 | ED.RN ---
Potassium and NS were started at 0315. Impriv[employer] not working and many computers are not working at all. Unable to sign off on meds at this time d/t no internet connection.
[2019-11-17 04:23] VITALS: BP 110/52; PULSE 62; RESP 14; O2SAT 96
[2019-11-17 05:24] VITALS: BP 115/58; PULSE 61; RESP 16; O2SAT 96
== END 2019-11-17 05:30 | disposition home or self-care (01) ==
PROVIDERS: Emergency Provider Emergency Medicine; PCP Internal Medicine
DX: E87.6 Hypokalemia (principal); I50.9 Heart failure, unspecified
CPT/HCPCS: 80048; 85027; 96360; 96361; 99284; J7030; A4216

== ENCOUNTER → 2019-11-22 09:56 | Outpatient (CLI) | payer OTHER, SELFPAY ==
[2019-11-22 09:13] VITALS: BMI 58.7
[2019-11-22 11:09] LABS: Anion Gap 5 (5-15); BUN 24 mg/dL (7-18); BUN/Creat Ratio 26.1 RATIO (10-20); Calcium,Total 8.5 mg/dL (8.5-10.1); Chloride 103 mmol/L (98-107); Creatinine, Serum 0.92 mg/dL (0.55-1.02); EST Glomerular Filtration Rate 66 mL/min (>60); Est Glom Filt Rate - Afr Amer 80 mL/min (>60); Glucose 85 mg/dL (74-106); Magnesium 2.2 mg/dL (1.6-2.6); Potassium 3.8 mmol/L (3.5-5.1); Sodium Level 140 mmol/L (136-145)
== END ==
PROVIDERS: PCP Internal Medicine; Referring Provider Internal Medicine Cardiovascular Disease; Visit Provider Internal Medicine Cardiovascular Disease
DX: I50.33 Acute on chronic diastolic (congestive) heart failure (principal)
CPT/HCPCS: 36415; 80048; 83735

== ENCOUNTER → 2021-08-31 16:05 | Outpatient (CLI) | payer OTHER, SELFPAY ==
[2021-08-31 17:49] LABS: BNP,B-Type NATRIURETIC PEPTIDE 31.6 pg/mL (0-100)
[2021-08-31 17:50] LABS: Anion Gap 7 (5-15); BUN 24 mg/dL (7-18); Calcium,Total 9.1 mg/dL (8.5-10.1); Chloride 106 mmol/L (98-107); Creatinine, Serum 0.86 mg/dL (0.55-1.02); EST Glomerular Filtration Rate 71 mL/min (>60); Est Glom Filt Rate - Afr Amer 86 mL/min (>60); Glucose 86 mg/dL (74-106); Potassium 3.7 mmol/L (3.5-5.1); Sodium Level 142 mmol/L (136-145)
== END ==
PROVIDERS: PCP Internal Medicine; Referring Provider Physician Assistant Medical; Visit Provider Physician Assistant Medical
DX: I50.32 Chronic diastolic (congestive) heart failure (principal)
CPT/HCPCS: 36415; 80048; 83880

== ENCOUNTER 2021-09-24 15:38 | Outpatient (CLI) | payer OTHER, SELFPAY ==
[2021-09-24 18:04] LABS: Anion Gap 9 (5-15); BUN 23 mg/dL (7-18); BUN/Creat Ratio 20.5 RATIO (10-20); Calcium,Total 9.1 mg/dL (8.5-10.1); Chloride 105 mmol/L (98-107); Creatinine, Serum 1.12 mg/dL (0.55-1.02); EST Glomerular Filtration Rate 52 mL/min (>60); Est Glom Filt Rate - Afr Amer 63 mL/min (>60); Glucose 122 mg/dL (74-106); Potassium 3.3 mmol/L (3.5-5.1); Sodium Level 139 mmol/L (136-145)
== END 2021-09-24 23:59 | disposition short-term general hospital (02) ==
LOC: LAB 15:39
PROVIDERS: PCP Internal Medicine; Visit Provider Physician Assistant Medical
DX: I50.32 Chronic diastolic (congestive) heart failure (principal)
CPT/HCPCS: 36415; 80048

== ENCOUNTER → 2022-01-11 | Outpatient (CLI) | payer OTHER, SELFPAY ==
[2022-01-11 16:25] LABS: Anion Gap 7 (5-15); BUN 26 mg/dL (7-18); BUN/Creat Ratio 27.4 RATIO (10-20); Calcium,Total 8.4 mg/dL (8.5-10.1); Chloride 103 mmol/L (98-107); Creatinine, Serum 0.95 mg/dL (0.55-1.02); EST Glomerular Filtration Rate 63 mL/min (>60); Est Glom Filt Rate - Afr Amer 77 mL/min (>60); Glucose 119 mg/dL (74-106); Potassium 3.7 mmol/L (3.5-5.1); Sodium Level 139 mmol/L (136-145)
== END | disposition home or self-care (01) ==
LOC: LAB 15:17
PROVIDERS: PCP Internal Medicine; Visit Provider Physician Assistant Medical
DX: I50.32 Chronic diastolic (congestive) heart failure (principal)
CPT/HCPCS: 36415; 80048

== ENCOUNTER 2022-08-22 18:00 | Outpatient (RCR) | payer OTHER, SELFPAY ==
--- NOTE | 2022-07-26 18:29 | HP.PTEVAL_ITS ---
Patient's Visit Information MAGI BURROUGHS is a 61 year old F referred to Physical Therapy by JOSEPHINE RiceC with a diagnosis of abnormalities of gait. Date of Evaluation: 07/26/22 Physical Therapist: Hollis Lu DPT, OCS, CSCS - Visit Plan Frequency: 2-3x /Week Duration: 4-6 Weeks Plan: 2-3x/week for aquatic therapy for. 1. attempt to gain R knee flexion ROM please. 2. burn calories, overall general strength program. 3. strengthen core, LE and progress to I program. - Subjective I have a hard time getting up and down. Has knee pain and had plasma injections, cannot have knee replacements due to her weight. Slowly improving. Weather makes her knees worse. Wants to strengthen legs. Uses wh walker the majority of the time. Uses it due to pain. Sharp pains can be problematic walking. 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 Getting up from chair can be challenging and needs UE to pull.. R knee does not bend far enough to get underneath her. helps her with shoes and socks. Hires someone to clean due to inability to stand. Bathroom and shower herself. No steps at home. Sleep is Ok in chair as bed is difficult. Back will go into spasms in bed. No exerciises. - Pain R>L knee pain Pain Intensity (Out of 10): 0 Pain Intensity Range: 0, 8 Comment: walking too much is worse - Objective Walks hunched over on wh walker with very stiff and unbending R knee, some flexion in L knee, is slow and labored but mod I with wh walker. Trasnfers require UE due to weakness in LE and inability to bend R knee. I bed and chair though. R knee flexion to 13 degrees and near full extension. L knee 0-75 AROM. Pain with OP to each knee. Hip AROM i sWFL to neutral extension and 90+ flexion, 20+ abduction. Very heavy legs and very obese patient. ankle aROM is WFL, tightness in gastroc/soleus to 0 DF. strength is 4+/5 in ankles. reflexes 2/3 patella and achilles. Sensation WNL to gross light touch in LE. - slump and SLR. Painful quad set R knee. trunk strength 4- abs and back , UE AROM WFL and strength at 4/5. Able to stand with ec without support easily. Able to ambulate without AD short steps and 20 feet safely today but slow and feels unsteady. Turns well. No steps performed today. - Balance/Special Test Scores Functional Gait Assessment Score: 16 % Disability: 46.6700 Lower Extremity Functional Score: 7 - Goals Goal 1:: 0-60 degree AROM R knee to help exit chair Goal Time Frame: 4-6 Weeks Goal 2:: Pt feel pain in knees 50% improved to 2/10 at worst Goal Time Frame: 4-6 Weeks Goal 3:: I appropriate HEP for community pool to minimize future problems and burn calories. Goal Time Frame: 4-6 Weeks Goal 4:: FGA score of 23 Goal Time Frame: 4-6 Weeks Goal 5:: 27 LEFS Goal Time Frame: 4-6 Weeks - Rehabilitation Potential Physical Therapy Diagnosis: abnormal gait, obesity and immobility with knee pain. Rehabilitation Potential: Questionable - Anticipated Interventions Patient/Client Instruction: Educate patient on: Condition, Plan of Care For the Purpose of:: To decrease pain, To increase ROM, To improve muscle performance and motor function, To increase tolerance to activity/condition/position, To improve ability of physical actions for home /community/work/leisure, To improve gait and locomotor functions Therapeutic Exercise to Include: Strength training, Balance training, Postural training, Flexibilty training, Gait and locomotor training, In an aquatic setting, Passive ROM, Active ROM, Dynamic Lumbar Stabilization For the Purpose of:: To decrease pain, To increase ROM, To improve nutrient delivery to tissue, To improve muscle performance and motor function, To increase tolerance to activity/condition/position, To improve ability of physical actions for home/community/work/leisure Thank you for the opportunity to evaluate your patient. For Medicare and Medicare HMO plans, please review the plan of care and approve it. It will need to be FAXED BACK to us at [phone] for Medicare purposes. For Medicare only, by signing this I certify the plan of care. Please let me know if there are questions or concerns regarding this plan of care. Physician Signature: Date:
--- NOTE | 2022-10-17 07:59 | HP.PT.NRP ---
MAGI BURROUGHS was seen in my office for initial evaluation on 07/26/22. The following Plan of Care was established for this patient: Initial Frequency: 2-3x /Week Initial Duration: 4-6 Weeks Patient/Client Instruction: Educate patient on: Condition, Plan of Care For the Purpose of:: To decrease pain, To increase ROM, To improve muscle performance and motor function, To increase tolerance to activity/condition/position, To improve ability of physical actions for home/community/work/leisure, To improve gait and locomotor functions Therapeutic Exercise to Include: Strength training, Balance training, Postural training, Flexibilty training, Gait and locomotor training, In an aquatic setting, Passive ROM, Active ROM, Dynamic Lumbar Stabilization For the Purpose of:: To decrease pain, To increase ROM, To improve nutrient delivery to tissue, To improve muscle performance and motor function, To increase tolerance to activity/condition/position, To improve ability of physical actions for home/community/work/leisure This patient was last seen in our office 08/22/22. Pertinent comments regarding their Physical therapy will appear below: Pt seen 3 visits of aquatic plan of care. She cancelled and no showed for the last 3 including her final recheck. at this point, it has been over 7 weeks and I will discontinue due to nonattendance. At this point I will be discontinuing this patient from physical therapy. I would be happy to see this patient again in the future if found appropriate by the physician. Thank you! Hollis Lu, DPT, OCS, CSCS Balance/Gait/Functional tests - Balance/Special Test Scores Functional Gait Assessment Score: 16 % Disability: 46.6700 Lower Extremity Functional Score: 7
== END 2022-08-22 19:00 | disposition home or self-care (01) ==
LOC: PT 18:00
PROVIDERS: PCP Internal Medicine; Referring Provider Nurse Practitioner Gerontology; Visit Provider Nurse Practitioner Gerontology
DX: E66.01 Morbid (severe) obesity due to excess calories (principal); R26.89 Other abnormalities of gait and mobility
CPT/HCPCS: 97113; 97162

== ENCOUNTER 2023-07-17 06:27 | Day surgery (SDC) | payer OTHER, SELFPAY ==
--- NOTE | 2023-07-17 | IMM_PTH ---
PATIENT: MAGI BURROUGHS LOC: EN U#:[id number] AGE/SX: 62/F ROOM: RE07/17/[address]: Dr. Emi Vogt MD : 1960 BED: DIS: 07/17/2023 SPEC #: [id number] RECD: 07/17/23 11:51 STATUS: MIKAYLA REQ #: [id number] JUDSON: 07/17/23 00:[address]: Emi Vogt DEPT: IMMUNOHISTOCHEMISTRY RECD BY: Syed Haas ENTERED: 07/17/23 11:51 SP TYPE: IMMUNO OTHR DR: Dr. Doris Pimentel MD Tissues: A - Gastric mucous membrane b - Gastric mucous membrane Procedures: H Pylori (initial) KI-67 (add) P53 (add) PHYSICIAN & INSTITUTION [place] [id number] SPECIMEN INFORMATION: Tissue Source: Antrum and GE junction Clinical Info: GERD, positive cologard Specimen Number: [id number] A and B CPT code: 33631, 34430 x2 METHODOLOGY: Deparaffinized sections of prefer/formalin-fixed tissue or PAP/DQ stained slides are incubated with monoclonal/polyclonal antibodies/oligonucleotide probes. Localization is made via biotin free immunoperoxidase method. Appropriate controls are performed and reacted as expected. Results on target cell population are indicated in the following table: RESULTS: ANTIBODY / CLONE RESULT BLOCK A H Pylori (polyclonal) negative BLOCK B P53 (DO-7) negative (null pattern) Ki-67 (30-9) positive, low These tests were developed and their performance characteristics determined by [facility]. They may not have been cleared or approved by the U.[place]. Food and Drug Administration. The FDA has determined that such clearance or approval is not necessary. The above immunohistochemical/dualISH markers are ordered and reviewed by the Pathologist. INTERPRETATION: A. Antrum, biopsy: Negative for Helicobacter pylori organisms. B. GE junction, biopsy: Negative for dysplasia SJ:vickie 07/19/2023
[2023-07-17] MEDS: Lactated Ringers 1,000 ML 15 ML IV (07:09)
[2023-07-17 07:10] VITALS: BP 141/64; PULSE 64; RESP 16; TEMP 36.8; O2SAT 100; BMI 61.2
--- NOTE | 2023-07-17 07:13 | HP.PCM_ITS ---
History and Physical Date of Admission: 07/17/23 Date of Service: 06/22/23 MR#: [id number] Acct: [id number] Name: MAGI BURROUGHS Rep #: [id number] : 1960 Provider: Dr. Emi Vogt MD Age/Sex: 62/F Location: [facility] Status: Signed Intake Vital Signs 02/21/2309:19 06/22/2315:01 Height 5 ft 1 in 5 ft 1 in Weight: 323 lb 6 oz 326 lb BMI 61.1 61.6 BP 129/71 H 123/71 H Blood Pressure Location Lt radial Rt radial Position Sitting Sitting Respiration 16 17 Pulse 64 67 Pulse Source Auscultation Monitor Temp 97 F L Temp Source Temporal Pulse Oximetry (%) 96 Oxygen Delivery Method room air Intake Visit Reasons: POSITIVE COLOGUARD Chief Complaint: positvie cologuard Allergies naproxen [From Naprosyn] Allergy (Mild, Verified 06/22/23 15:02) Swellingrofecoxib [From Vioxx] Allergy (Mild, Verified 06/22/23 15:02) Swellingaspirin Adverse Reaction (Verified 06/22/23 15:02) Upset Stomach Medications calcium carbonate 600 mg-vitamin D3 20 mcg (800 unit) tablet 1 ea PO DAILY supplement 10/21/13 [History Confirmed 06/22/23] multivitamin with folic acid 400 mcg tablet 1 tab PO DAILY vitamin 10/21/13 [History Confirmed 06/22/23] cholecalciferol (vitamin D3) 50 mcg (2,000 unit) tablet 50 mcg PO DAILY 11/22/19 [History Confirmed 06/22/23] ibuprofen 200 mg tablet 400 mg PO DAILY 11/22/19 [History Confirmed 06/22/23] loratadine 10 mg tablet 10 mg PO DAILY 11/22/19 [History Confirmed 06/22/23] potassium chloride 20 mEq tablet,extended release(part/cryst) 20 meq PO DAILY #90 tabs 11/21/22 [Rx Confirmed 06/22/23] metolazone 10 mg tablet 10 mg PO .3XWEEK 02/21/23 [History Confirmed 06/22/23] bumetanide 1 mg tablet 1 mg PO DAILY #180 tabs 05/05/23 [Rx Confirmed 06/22/23] omeprazole 40 mg capsule,delayed release 40 mg PO QDAY #30 caps 06/22/23 [Rx Confirmed 06/22/23] PFSH Medical History (Updated 06/22/23 @ 15:[address] Emi Vogt MD) Arthritis Chronic diastolic (congestive) heart failure GERD (gastroesophageal reflux disease) Hypokalemia Morbid (severe) obesity due to excess calories Right bundle branch block (RBBB) Surgical History History of dilatation and curettage History of eye surgery Family History (Updated 06/22/23 @ 15:01 by Yumiko Benitez) Mother Heart disease Hypertension CancerFather Heart disease Cancer Hypertension Seizures Social History Smoking Status: Never smoker alcohol intake: never substance use type: does not use caffeine: Yes Type: tea Number of servings: 2 HPI HPI HPI: 62-year-old female presents due to positive Cologuard for colonoscopy. Patient colonoscopy about [address] Mera negative per patient. Patient denies any abdominal pain/nausea/vomiting. Patient does have reflux is currently on omeprazole 20 mg p.o. daily patient states last couple weeks she has had daily symptoms. Patient had previously avoided foods that aggravated it in the past. Patient states her last EGD Prah it was probably 40 years ago when she was in her 20s. Patient has bowel moods daily denies any blood. ROS General General: Yes fatigue; No weight change, appetite, colon cancer, breast cancer or weakness HEENT HEENT: No difficulty swallowing, eye injury, eye surgery, swollen glands or hoarseness Endo Endocrine: No thyroid disease, diabetes mellitus, thyroid cancer, Hair loss, heat intolerance or cold intolerance Skin Skin: Yes rash; No changing moles Musc Musculoskeletal: Yes arthritis; No back problems, rheumatoid arthritis, gout or joint pain Cardio Cardiovascular: Yes heart disease; No murmur, pacemaker, atrial fibrillation, high blood pressure, heart attack, heart stent, palpitations, shortness of breat with exertion or chest pain Psych Psychiatric: No depression, anxiety or hearing voices Resp Respiratory: Yes shortness of breath, No sleep apnea, No cough, No COPD, No asthma, No emphysema and No wheezing Gastro Gastrointestinal: No abdominal pain, No nausea or vomiting, No diarrhea, No constipation, No blood in stool, Yes acid reflux, No hemorrhoids, No ulcers, No gallbladder problem and No black,tarry stools Jovanny Hematologic: No blood thinners, No blood disorders, No bleeding, No anemia and No blood clots Neuro Neurologic: No system reviewed and no additional complaints, except as documented, No as per HPI, No abnormal gait, No abnormal hearing, No abnormal movements, No abnormal speech, No behavioral changes, No burning sensations, No confusion, No convulsions, No disequilibrium, No dizziness, No localized weakness, No frequent falls, No headache(s), No lack of coordination, No loss of vision, No memory loss, No numbness, No other visual disturbances, No radicular pain, No restless legs, No sensory deficit, No syncope, No tingling, No tremor(s), No weakness and No other Exam Const General: cooperative, comfortable and no acute distress HENMT Head: normocephalic and atraumatic Neck Neck: supple Resp Effort & Inspection: normal respiratory effort Cardio Rate: regular rate GI Inspection: non-distended Palpation: soft and nontender Skin General: no rashes or lesions noted Neuro General: CN's II-XI intact bilaterally Extrem General: normal to inspection Psych Mental Status: mental status grossly normal Attitude: cooperative Assessment and Plan Assessment and Plan (1) Positive colorectal cancer screening using Cologuard test: Status: Acute (2) GERD (gastroesophageal reflux disease): Status: Acute Medications: New omeprazole swallow whole; do not crush, chew, dissolve, cut, break 40 mg PO QDAY 30 caps 1RF Discontinued omeprazole Discontinued Reason: Order Changed 20 mg PO DAILY 90 caps 3RF Plan Discussed with patient would recommend EGD as well as her last one was 40 years ago and she is having daily symptoms on her omeprazole. However though recommend that she increase her omeprazole to 40 mg p.o. daily which I did send a prescription for her. We will have patient check back in after couple weeks let me know if the symptoms are improved as we will keep her on omeprazole but if they are still having symptoms would consider changing her to pantoprazole 40 mg p.o. daily at that time. Patient is agreeable to plan. I have discussed the above with the patient. I have offered the patient EGD and colonoscopy for evaluation. I have explained the risks/benefits of the procedure and described the procedure. I have discussed the risks with the patient, including but not limited to: infection, bleeding, perforation of the GI tract requiring emergency surgery, inability to complete the procedure, injury to any internal organs, complications of anesthesia, etc. - the patient understands and agrees to proceed. I have answered all the patient's questions to the patient's satisfaction and the patient has no further questions. The patient has been given instructions for the colon cleansing preparation. MiraLAX Dulcolax prep 1 day of clears Emi Vogt M.D. Pager: [phone] [facility] [address] [place] [address], [address] [place] [address] Office: [phone] Coding Level of Care Code Off vis,new,level 3 Diagnoses Positive colorectal cancer screening using Cologuard test R19.5 GERD (gastroesophageal reflux disease) K21.9 06/22/23 1512 <Electronically signed by Emi Vogt MD> Date Emi Vogt MD
--- NOTE | 2023-07-17 07:30 | EGD_PTH ---
PATIENT: MAGI BURROUGHS LOC: EN U#:[id number] AGE/SX: 62/F ROOM: RE07/17/[address]: Dr. Emi Vogt MD : 1960 BED: DIS: 07/17/2023 SPEC #: [id number] RECD: 07/17/23 10:12 STATUS: MIKAYLA GAUTAM #: [id number] JUDSON: 07/17/23 07:[address]: Emi Vogt DEPT: SURGICAL PATHOLOGY RECD BY: Meghan Duncan ENTERED: 07/17/23 11:04 SP TYPE: EGD BIOPSY TRA DR: Dr. Doris Pimentel MD Tissues: A - Gastric mucous membrane B - Esophageal mucous membrane C - COLON BIOPSY D - Sigmoid colon biopsy Procedures: Surgery Specimen Level IV HEADER OPERATION: Colonoscopy with polyp biopsy, EGD with biopsy PRE-OP DIAGNOSIS: GERD, positive cologard TISSUE SUBMITTED: A. Antrum, B. GE junction, C. Ascending colon polyp, D. Sigmoid colon polyp MICROSCOPIC DIAGNOSIS A. Antrum, biopsy: Mild gastritis. See microscopic description and comment. B. GE junction, biopsy: Fragments of gastroesophageal mucosa with intestinal metaplasia (goblet cell metaplasia), consistent with Lees's esophagus. Chronic inflammation. Negative for dysplasia. See comment. C. Ascending colon polyp, biopsy: Tubular adenoma. D. Sigmoid colon polyp,biopsy: Hyperplastic polyp. SJ: 07/18/2023 COMMENT A. The results of immunohistochemistry for Helicobacter pylori will be reported separately ([id number]). B. Alcian blue/PAS stain with matched control is used in the evaluation of the specimen. Immunohistochemistry ([id number]) for P53 and Ki-67 will be performed and results will be reported separately. MICROSCOPIC DESCRIPTION Slides are reviewed. The specimen shows fragments of gastric mucosa with chronic inflammatory cell infiltrates in the lamina propria consisting of lymphocytes and plasma cells, consistent with mild chronic gastritis. GROSS DESCRIPTION A. Received is one container labeled with the patient name and designated antrum. The specimen consists of one irregular fragment of light littlejohn soft tissue that measures 0.3 x 0.2 x 0.1 cm. The specimen is totally submitted in one cassette. B. Received is one container labeled with the patient name and designated GE junction. The specimen consists of multiple irregular fragment of light littlejohn soft tissue that in aggregate measure 0.4 x 0.4 x 0.1 cm. The specimen is totally submitted in one cassette. C. Received is one container labeled with the patient name and designated ascending colon polyp. The specimen consists of one irregular fragment of light littlejohn soft tissue that measures .3 x .3 x .1 cm. The specimen is totally submitted in one cassette. D. Received is one container labeled with the patient name and designated sigmoid colon polyp. The specimen consists of two irregular fragment of light littlejohn soft tissue that in aggregate measure 0.3 x 0.3 x 0.1 cm. The specimen is totally submitted in one cassette. /SJ:cc 07/17/23 TC:3 CPT: 70197 x4, 55652
[2023-07-17 08:01] VITALS: BP 121/70; BP 141/64; PULSE 61; RESP 16; TEMP 36.8; O2SAT 93
--- NOTE | 2023-07-17 08:01 | OP.CCLET_ITS ---
07/17/2023 Doris Pimentel [address] [id number] Re : Upper GI endoscopy procedure for Angella [place] Dear Dr. Pimentel This procedure was performed on Monday, July 17, 2023. My impressions and recommendations are as follows: Impressions : - Z-line irregular, 35 cm from the incisors. Biopsied. - Medium-sized hiatal hernia. - Erythematous mucosa in the antrum. Biopsied. - Erythematous duodenopathy. - Normal first portion of the duodenum and second portion of the duodenum. Recommendations : - Await pathology results. - Discharge patient to home. - Resume previous diet. - Continue present medications. My findings are described in the full procedure note, which is enclosed. If I can be of further assistance, please feel free to contact me at Doctor phone number(s): , Work: . Sincerely, MD Emi Romero MD 07/17/2023 8:00:56 AM This report has been signed electronically.
--- NOTE | 2023-07-17 08:01 | OP.EGD_ITS ---
Patient Name: Angella Dougherty Procedure Date: 07/17/2023 7:12 AM Date of : 1960 Age: 62 Procedure: Upper GI endoscopy Indications: Heartburn Providers: Emi Vogt MD Referring MD: Doris Pimentel Medicines: Monitored Anesthesia Care Patient Profile: This is a 62 year old female. Complications: No immediate complications. Procedure: Pre-Anesthesia Assessment: - Prior to the procedure, a History and Physical was performed, and patient medications and allergies were reviewed. The patient's tolerance of previous anesthesia was also reviewed. The risks and benefits of the procedure and the sedation options and risks were discussed with the patient. All questions were answered, and informed consent was obtained. Prior Anticoagulants: The patient has taken no anticoagulant or antiplatelet agents. ASA Grade Assessment: Per anesthesia. After reviewing the risks and benefits, the patient was deemed in satisfactory condition to undergo the procedure. After obtaining informed consent, the endoscope was passed under direct vision. Throughout the procedure, the patient's blood pressure, pulse, and oxygen saturations were monitored continuously. The colonoscope was introduced through the mouth, and advanced to the second part of duodenum. The upper GI endoscopy was accomplished without difficulty. The patient tolerated the procedure well. Scope In: 7:34:06 AM Scope Out: 7:37:51 AM Total Procedure Duration Time 0 hours 3 minutes 45 seconds Findings: The Z-line was irregular and was found 35 cm from the incisors. Biopsies were taken with a cold forceps for histology. A medium-sized hiatal hernia was present. Mildly erythematous mucosa without bleeding was found in the gastric antrum. Biopsies were taken with a cold forceps for histology. Biopsies were taken with a cold forceps for Helicobacter pylori cultures. Mildly erythematous mucosa without active bleeding and with no stigmata of bleeding was found in the duodenal bulb. The first portion of the duodenum and second portion of the duodenum were normal. The exam of the esophagus was otherwise normal. Impression: - Z-line irregular, 35 cm from the incisors. Biopsied. - Medium-sized hiatal hernia. - Erythematous mucosa in the antrum. Biopsied. - Erythematous duodenopathy. - Normal first portion of the duodenum and second portion of the duodenum. Recommendation: - Await pathology results. - Discharge patient to home. - Resume previous diet. - Continue present medications. Procedure Code(s): --- Professional --- 86529, Esophagogastroduodenoscopy, flexible, transoral; with biopsy, single or multiple Diagnosis Code(s): --- Professional --- K22.89, Other specified disease of esophagus K44.9, Diaphragmatic hernia without obstruction or gangrene K31.89, Other diseases of stomach and duodenum R12, Heartburn CPT copyright 2021 [employer]. All rights reserved. The codes documented in this report are preliminary and upon death surveys coder review may be revised to meet current compliance requirements. MD Emi Romero MD 07/17/2023 8:00:56 AM This report has been signed electronically. Number of Addenda: 0 Note Initiated On: 07/17/2023 7:12 AM
[2023-07-17 08:05] VITALS: BP 118/62; BP 141/64; PULSE 59; RESP 16; O2SAT 97
[2023-07-17 08:10] VITALS: BP 117/64; BP 141/64; PULSE 59; RESP 16; O2SAT 96
--- NOTE | 2023-07-17 08:12 | OP.COLON_ITS ---
Patient Name: Angella Dougherty Procedure Date: 07/17/2023 7:38 AM Date of : 1960 Age: 62 Procedure: Colonoscopy Indications: Positive Cologuard test Providers: Emi Vogt MD Referring MD: Doris Pimentel Medicines: Monitored Anesthesia Care Patient Profile: This is a 62 year old female. Last Colonoscopy: 10 years ago. Complications: No immediate complications. Procedure: Pre-Anesthesia Assessment: - Prior to the procedure, a History and Physical was performed, and patient medications and allergies were reviewed. The patient's tolerance of previous anesthesia was also reviewed. The risks and benefits of the procedure and the sedation options and risks were discussed with the patient. All questions were answered, and informed consent was obtained. Prior Anticoagulants: The patient has taken no anticoagulant or antiplatelet agents. ASA Grade Assessment: Per anesthesia. After reviewing the risks and benefits, the patient was deemed in satisfactory condition to undergo the procedure. After I obtained informed consent, the scope was passed under direct vision. Throughout the procedure, the patient's blood pressure, pulse, and oxygen saturations were monitored continuously. The colonoscope was introduced through the anus and advanced to the cecum, identified by appendiceal orifice and ileocecal valve. The colonoscopy was performed without difficulty. The patient tolerated the procedure well. The quality of the bowel preparation was good. Scope In: Scope Withdrawal Time 0 hours 6 minutes 51 seconds Scope Out: 7:53:51 AM Findings: Two sessile polyps were found in the sigmoid colon and ascending colon. The polyps were less than 5 mm in size. These polyps were removed with a cold biopsy forceps. Resection and retrieval were complete. Multiple small-mouthed diverticula were found in the sigmoid colon. The exam was otherwise without abnormality. Non-bleeding internal hemorrhoids were found. The hemorrhoids were Grade I (internal hemorrhoids that do not prolapse). Impression: - Two less than 5 mm polyps in the sigmoid colon and in the ascending colon, removed with a cold biopsy forceps. Resected and retrieved. - Diverticulosis in the sigmoid colon. - The examination was otherwise normal. - Non-bleeding internal hemorrhoids. Recommendation: - Discharge patient to home. - Resume previous diet. - Continue present medications. - Await pathology results. - Repeat colonoscopy in 5 years for surveillance based on pathology results. Procedure Code(s): --- Professional --- 09489, Colonoscopy, flexible; with biopsy, single or multiple Diagnosis Code(s): --- Professional --- D12.5, Benign neoplasm of sigmoid colon D12.2, Benign neoplasm of ascending colon R19.5, Other fecal abnormalities K57.30, Diverticulosis of large intestine without perforation or abscess without bleeding CPT copyright 2021 [employer]. All rights reserved. The codes documented in this report are preliminary and upon concrete finisher apprentice review may be revised to meet current compliance requirements. MD Emi Romero MD 07/17/2023 8:11:41 AM This report has been signed electronically. Number of Addenda: 0 Note Initiated On: 07/17/2023 7:38 AM
--- NOTE | 2023-07-17 08:12 | OP.CCLET_ITS ---
07/17/2023 Doris Pimentel [address] [id number] Re : Colonoscopy procedure for Angella [place] Dear Dr. Pimentel This procedure was performed on Monday, July 17, 2023. My impressions and recommendations are as follows: Impressions : - Two less than 5 mm polyps in the sigmoid colon and in the ascending colon, removed with a cold biopsy forceps. Resected and retrieved. - Diverticulosis in the sigmoid colon. - The examination was otherwise normal. - Non-bleeding internal hemorrhoids. Recommendations : - Discharge patient to home. - Resume previous diet. - Continue present medications. - Await pathology results. - Repeat colonoscopy in 5 years for surveillance based on pathology results. My findings are described in the full procedure note, which is enclosed. If I can be of further assistance, please feel free to contact me at Doctor phone number(s): , Work: . Sincerely, MD Emi Romero MD 07/17/2023 8:11:41 AM This report has been signed electronically.
[2023-07-17 08:14] VITALS: BP 122/62; BP 141/64; PULSE 58; RESP 16; TEMP 36.9; O2SAT 97
[2023-07-17 08:36] VITALS: BP 141/64
== END 2023-07-17 08:45 | disposition home or self-care (01) ==
LOC: EN 06:31 → AC 06:32
PROVIDERS: PCP Internal Medicine; Referring Provider Internal Medicine; Visit Provider Surgery
PROC: 0DJD8ZZ Inspection of Lower Intestinal Tract, Via Natural or Artificial Opening Endoscopic (ICD-10-PCS; CPT 45378; principal; 2023-07-17 07:25)
DX: K44.9 Diaphragmatic hernia without obstruction or gangrene (principal); Z68.44 Body mass index [BMI] 60.0-69.9, adult; E66.01 Morbid (severe) obesity due to excess calories; K57.30 Diverticulosis of large intestine without perforation or abscess without bleeding; K64.0 First degree hemorrhoids; K21.9 Gastro-esophageal reflux disease without esophagitis; K22.89 Other specified disease of esophagus; K31.89 Other diseases of stomach and duodenum; R19.5 Other fecal abnormalities; D12.2 Benign neoplasm of ascending colon; D12.5 Benign neoplasm of sigmoid colon
CPT/HCPCS: 45380; 43239; 88305; 88341; 88342; J7120; J2405

== ENCOUNTER 2025-07-23 08:38 | Day surgery (SDC) | payer OTHER, SELFPAY ==
--- NOTE | 2025-07-21 15:26 | PAT.ANE_ITS ---
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 When Was Last Pacemaker Check QUESTION #4 FULL TEXT: You/Your Family Experience fever (hyperthermia) with Anesthesia Last Oral Intake Last Oral intake: Last Oral Intake NPO since Meds taken in AM with sips of water? Meds patient instructed to take am of surgery PONV PONV - business analytics specialist: PONV - business analytics specialist Female Yes 07/21/25 14:04 HX of Motion Sickness No 07/21/25 14:04 HX of N/V After Surgery No 07/21/25 14:04 Non-Smoker Yes 07/21/25 14:04 Duration of Surgery greater No 07/21/25 14:04 than 60 minutes Number of Risk Factors 2 07/21/25 14:04 PONV Score Moderate Risk 07/21/25 14:04 Height & Weight Height & Weight: Anesthesia: Height & Weight Height 5 ft 1 in 06/16/25 13:33 Respiratory Assessment Respiratory Assessment - business analytics specialist: Respiratory Tract Infection Hx - business analytics specialist Hx Respiratory Tract Infection No 07/21/25 14:04 STOP Sleep Apnea STOP Sleep Apnea - business analytics specialist: STOP Sleep Apnea - business analytics specialist Hx Hypertension No 07/21/25 14:04 Hx Sleep Apnea No 07/21/25 14:04 CPAP No 07/21/25 14:04 BIPAP No 07/21/25 14:04 Do you snore loudly (louder No 07/21/25 14:04 than talking or can be heard Do you often feel tired/ No 07/21/25 14:04 fatigued/ sleepy during daytime? Has anyone observed you stop No 07/21/25 14:04 breathing during sleep? STOP Results Negative 07/21/25 14:04 QUESTION #5 FULL TEXT : Do you snore loudly (louder than talking or can be heard through closed doors)? 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 Specify any problems Hx of Preganancy in last 3 No 07/21/25 14:04 Months Nurse Filling Out Transfusion VCHRISTIN 07/21/25 14:04 & Questions: Date: 07/21/25 07/21/25 14:04 Time: 14:06 07/21/25 14:04 Patient unable to answer at this time (ie. confused, unrespo /Reproduction History /Reproductive History - business analytics specialist: /Reproductive Hx- business analytics specialist Hx Now No 07/21/25 14:04 Gestational Age (in weeks): EDC: Hx Hx Para Hx Section SAB No 07/21/25 14:04 Does the father of the baby or his family experience fever w Father of the baby Malignant Hypertension history comment [facility] Medical History Wears glasses Walker as ambulation aid Easy bruising Gastric reflux Non-smoker Sleep apnea History of edema History of echocardiogram Cardiology follow-up encounter Chronic diastolic (congestive) heart failure Arthritis GERD (gastroesophageal reflux disease) Hypokalemia Right bundle branch block (RBBB) Morbid (severe) obesity due to excess calories Home Medications Medication Instructions Recorded Last Taken Type calcium 600 mg (as 1 ea PO DAILY supplement 06/24 Unknown History carbonate)-vitamin D3 20 mcg (800 unit) tablet multivitamin with folic acid 400 1 tab PO DAILY vitami n 10/21/13 Unknown History mcg tablet cholecalciferol (vitamin D3) 50 50 mcg PO DAILY Unknown History mcg (2,000 unit) tablet loratadine 10 mg tablet 10 mg PO DAILY 11/22/19 Unkn own History metolazone 10 mg tablet 10 mg PO QODAY 02/21/23 Unkn own History bumetanide 1 mg tablet 1 mg PO DAILY #180 tabs 04/12 01/31 Unknown Rx omeprazole 40 mg capsule,delayed 40 mg PO QDAY #30 cap s 06/22/23 Unknown Rx release ibuprofen 200 mg tablet 600 mg PO DAILY 06/16/25 Unk nown History potassium chloride 20 mEq 40 meq PO TID 06/16/25 Unkno wn History tablet,extended release (K-Tab) Allergy/AdvReac Type Severity Reaction Status Date / Time naproxen (From Naprosyn) Allergy Mild Swelling Verified 07/21/25 14:00 rofecoxib (From Vioxx) Allergy Mild Swelling Verified 07/21/25 14:00 aspirin AdvReac Upset Verified 07/21/25 14:00 Stomach Family History Mother Heart disease Hypertension Cancer Father Heart disease Cancer Hypertension Seizures Surgical History Hx of colonoscopy History of eye surgery History of dilatation and curettage Social History (Updated 06/16/25 @ 13:33 by Yumiko Benitez) Smoking Status: Never smoker alcohol intake: never substance use type: does not use caffeine: Yes Type: tea Number of servings: 2 additional social history: takes ibuprofen daily Audit: Pertinent Findings HISTORY of Pertinent Findings History of Pertinent Findings: She has a history of diastolic heart failure, hypertension, and right bundle branch block. She does have AWILDA and does not use a CPAP. Pertinent Findings EKG Perinent findings: 10/2019: SB with RBBB Echo (EF%) pertinent findings: 10/2019: Interpretation Summary Normal LV size. Mild concentric left ventricular hypertrophy. Left ventricular systolic function is normal. The estimated ejection fraction is 60 %. Mild (1+) eccentric mitral valve insufficiency. Recommendation Anesthesia Recommendation Anesthesia recommendation: OPTIMIZED for anesthesia
[2025-07-23] VITALS (7 sets, daily range): BP systolic 103–150; BP diastolic 50–63; PULSE 61–68; RESP 16–20; TEMP 36.2–36.8; O2SAT 94–100; BMI 60.4
--- NOTE | 2025-07-23 08:54 | H&P.OPEN ---
HPI - General General Date of Service: 07/23/25 HPI Narrative MAGI BURROUGHS, is a 64 F who presents for an EGD due to Lees's. Patient states she has had a little more abdominal discomfort the last couple weeks. office visit 06/16/25 [facility] HPI: 64-year-old female presents for follow-up EGD due to Lees's. EGD and colonoscopy was done 07/2023. Patient got 5 years due to colon polyps for repeat colonoscopy. Patient's biopsies did show Lees's on EGD. Patient has been on omeprazole 40 mg p.o. daily denies any symptoms ever maybe once a month or so if she has some spicy foods. [facility] Medical History Wears glasses Walker as ambulation aid Easy bruising Gastric reflux Non-smoker Sleep apnea History of edema History of echocardiogram Cardiology follow-up encounter Chronic diastolic (congestive) heart failure Arthritis GERD (gastroesophageal reflux disease) Hypokalemia Right bundle branch block (RBBB) Morbid (severe) obesity due to excess calories Home Medications Medication Instructions Recorded Last Taken Type calcium 600 mg (as 1 ea PO DAILY supplement 10/21/13 Unknown History carbonate)-vitamin D3 20 mcg (800 unit) tablet multivitamin with folic acid 400 1 tab PO DAILY vitamin 10/21/13 Unknown History mcg tablet cholecalciferol (vitamin D3) 50 50 mcg PO DAILY 11/22/19 Unknown History mcg (2,000 unit) tablet loratadine 10 mg tablet 10 mg PO DAILY 11/22/19 Unknown History metolazone 10 mg tablet 10 mg PO QODAY 02/21/23 Unknown History bumetanide 1 mg tablet 1 mg PO DAILY #180 tabs 05/05/23 Unknown Rx omeprazole 40 mg capsule,delayed 40 mg PO QDAY #30 caps 06/22/23 Unknown Rx release ibuprofen 200 mg tablet 600 mg PO DAILY 06/16/25 Unknown History potassium chloride 20 mEq 40 meq PO TID 06/16/25 Unknown History tablet,extended release (K-Tab) Allergy/AdvReac Type Severity Reaction Status Date / Time naproxen (From Naprosyn) Allergy Mild Swelling Verified 07/23/25 09:13 rofecoxib (From Vioxx) Allergy Mild Swelling Verified 07/23/25 09:13 aspirin AdvReac Upset Verified 07/23/25 09:13 Stomach Family History Mother Heart disease Hypertension Cancer Father Heart disease Cancer Hypertension Seizures Surgical History Hx of colonoscopy History of eye surgery History of dilatation and curettage Social History (Updated 06/16/25 @ 13:33 by Yumiko Benitez) Smoking Status: Never smoker alcohol intake: never substance use type: does not use caffeine: Yes Type: tea Number of servings: 2 additional social history: takes ibuprofen daily Past Medical/Surgical History Planned Operation Planned Operative Procedure(s): EGD S.O.S: No Previous Hospitalizations/Surgeries HX Hospitalizations: No HX of Surgeries: D&c X4, LAST TIME 2011, Any Problems With Anesthesia: No You/Your Family Experience Fever (Hyperthermia) With Anes: No Cholinesterase deficiency: No Cardiovascular Hx Chest Pain within Last 2 months: No Hx of Irregular Heartbeat and/or Afib: No Hx Heart Attack: No Hx Congestive Heart Failure: Yes Hx Rheumatic Fever: No Hx Hypertension: No Hx Internal Defibrillator: No Hx Pacemaker: No Hx Cardiac Catheterization: Yes Hx Cardiac Surgery/Stents/Etc.: No Hx Stress Test: Yes ([facility],, 2009 ?) Hx Pain in Legs when Walking/Leg Cramps: No Respiratory Chronic Cough: No HX of Shortness of Breath: No Hoarseness: No Hx Chronic Obstructive Pulmonary Disease (COPD): No Hx Asthma: No Hx Emphysema: No Hx Sleep Apnea: No CPAP: No BIPAP: No Hx Respiratory Tract Infection/Cold (presently): No Do You Snore Loudly (louder than talking or can be heard): No Do You Often Feel Tired/ Fatigued/ Sleepy Dring Daytime?: No Has Anyone Observed You Stop Breathing During Sleep?: No Result (for STOP score): Negative Hx Smoking: No Smoking Status: Never smoker Gastrointestinal Controlled With Meds: Yes Hx Gastrointestinal Bleed: No Hx Ulcer: No Hx Hiatal Hernia: No Difficulty Chewing/Swallowing: No Special diet followed at home: No Hx Unplanned Weight Loss of 20#: No HX Unplanned Weight Gain of 20#: No Neurological Hx Seizures: No HX Syncope/Blackout Spells/Unconsciousness: No Hx Transient Ischemic Attacks (TIA): No Hx Multiple Sclerosis: No Hx Parkinson's Disease: No Hx Head/Neck Injury: No Hx Headaches: No Hx Back Injury/Pain: No Recent Onset of Speech Difficulty: No Restless Legs: No Does patient have nerve stimulator: No Blood Disorder Hx Leukemia: No Bleeding Tendencies: No Hx Deep Vein Thrombosis: No Hx High Cholesterol: No Blood Transmitted Disease: No Hx Hepatitis: No Hx Cirrhosis: No Hx Anemia: No Hx Blood Disorders: No Reproduction : No Is Patient Lactating: No Hx Tubal Ligation: No Are You Post Menopause: No Genitourinary Hx Renal Disease: No Hx Dialysis: No Musculoskeletal Hx Arthritis: Yes (Knees, shoulders, hands, chest, back.) Hx Rheumatoid Arthritis: No Hx Gout: No Recent Onset of an Orthopedic Problem: No Endocrine Hx Diabetes: No Thyroid Disease: No Hx Steroid Therapy: No Psycho/Social Hx Substance Use: No Hx Alcohol Use: No Hx Anxiety: No Hx Depression: No Mental Illness: No Hx Dementia: No Miscellaneous Hx Cancer: No Recent Exposure to Contagious Disease: No Hx of C-Diff: No Any Loose Teeth: No Allergies naproxen (From Naprosyn) Allergy (Mild, Verified 07/23/25 09:13) Swelling rofecoxib (From Vioxx) Allergy (Mild, Verified 07/23/25 09:13) Swelling aspirin Adverse Reaction (Verified 07/23/25 09:13) Upset Stomach Maternal: Family History Mother Heart disease Hypertension Cancer Father Heart disease Cancer Hypertension Seizures Heart Disease Paternal: Family History Mother Heart disease Hypertension Cancer Father Heart disease Cancer Hypertension Seizures Cancer and Heart Disease Discharge Is Pt Admitted From a Longterm, or a Nursing Home: No After D/C, Where Do you Plan to Go: Return Home From the PAT History Number of Risk Factors: 1 Physical Exam Const alert, oriented x3 and no apparent distress HEENT normocephalic and head/scalp atraumatic Resp normal respiratory effort Cardio regular rate GI soft to palpation and non-tender; Negative for non-distended Palpation: Negative for guarding Extremity no clubbing, cyanosis or edema Skin no rashes or lesions noted Neuro CN's II-XII intact bilaterally Psych mental status grossly normal Assessment & Plan Assessment/Plan (1) Lees esophagus: Surgery Risks - Colonoscopy I discussed with the patient the risks of the procedure: Yes Risks Include but are not Limited To: Plan for an EGD only risks include but are not limited to: Bleeding, perforation requiring further surgery
[2025-07-23] MEDS: Lactated Ringers 1,000 ML 15 ML IV (09:17)
--- NOTE | 2025-07-23 09:35 | PRE.ANES_ITS ---
ASA Classification* ASA Classification ASA Classification: 4 (BMI > 50. GERD) Assessment & Plan Anesthesia* Anesthesia Assessment Anesthesia Assessment: Discussed sedation and/or anesthesia options, risks, benefits, and alternatives with patient/parents/legal guardian/POA. Questions invited. The patient/parents/legal guardian/POA seems to understand and agrees to proceed with anesthesia plan. Reviewed the physical assessment, medical history, allergy history and patient home medications list prior to surgery/procedure/anesthetic and documented any changes. Performed airway and anesthesia risk assessments. history of diastolic heart failure, hypertension, and right bundle branch block. She does have AWILDA and does not use a CPAP. Anesthesia Type Anesthesia Type: MAC History Source History Obtained from:: Patient and Chart Anesthesia Focused Assessment* Temperature: 98.2 F Pulse Rate: 62 Blood Pressure: 150/63 Respiratory Rate: 20 Pulse Ox: 100 Oxygen Delivery Method: Room Air Airway Assessment Mouth opens: >3 cm Mallampati Score: IV Neck Range of motion (ROM): Full ROM Labs Anesthesia Preop lab: CBC WBC, (4.4-11.0) 7.7 K/mm3 11/17/19, 01:15 RBC, (4.2-5.4) 4.12 M/mm3 L 11/17/19, 01:15 Hgb, (12.0-15.0) 12.8 g/dL 11/17/19, 01:15 Hct, (37-47) 37.6 % 11/17/19, 01:15 Plt Count, (150-450) 254 K/mm3 11/17/19, 01:15 CHEMISTRY Potassium, (3.5-5.1) 3.7 mmol/L 01/11/22, 15:19 Sodium, (136-145) 139 mmol/L 01/11/22, 15:19 Magnesium, (1.6-2.6) 2.2 mg/dL 11/22/19, 09:59 BUN, (7-18) 26 mg/dL H 01/11/22, 15:19 Creatinine, (0.55-1.02) 0.95 mg/dL 01/11/22, 15:19 Glucose, (74-106) 119 mg/dL H 01/11/22, 15:19 COAG Pre-Assessment Diagnosis/Proposed Procedure Planned Operative Procedure(s): EGD Anesthesia History 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 When Was Last Pacemaker Check QUESTION #4 FULL TEXT: You/Your Family Experience fever (hyperthermia) with Anesthesia Last Oral Intake Last Oral intake: Last Oral Intake NPO since 21:00 07/23/25 09:14 Meds taken in AM with sips of No 07/23/25 09:14 water? Meds patient instructed to take am of surgery PONV PONV - brand protection manager: PONV - brand protection manager Female Yes 07/21/25 14:04 HX of Motion Sickness No 07/21/25 14:04 HX of N/V After Surgery No 07/21/25 14:04 Non-Smoker Yes 07/21/25 14:04 Duration of Surgery greater No 07/21/25 14:04 than 60 minutes Number of Risk Factors 2 07/21/25 14:04 PONV Score Moderate Risk 07/21/25 14:04 Height & Weight Height & Weight: Anesthesia: Height & Weight Height 5 ft 1 in 07/23/25 09:14 Weight: 145 kg 07/23/25 09:14 Body Mass Index (BMI) 60.4 07/23/25 09:14 Respiratory Assessment Respiratory Assessment - brand protection manager: Respiratory Tract Infection Hx - brand protection manager Hx Respiratory Tract Infection No 07/23/25 08:55 STOP Sleep Apnea STOP Sleep Apnea - brand protection manager: STOP Sleep Apnea - brand protection manager Hx Hypertension No 07/23/25 08:55 Hx Sleep Apnea No 07/23/25 08:55 CPAP No 07/23/25 08:55 BIPAP No 07/23/25 08:55 Do you snore loudly (louder No 07/23/25 08:55 than talking or can be heard Do you often feel tired/ No 07/23/25 08:55 fatigued/ sleepy during daytime? Has anyone observed you stop No 07/23/25 08:55 breathing during sleep? STOP Results Negative 07/23/25 09:30 QUESTION #5 FULL TEXT : Do you snore loudly (louder than talking or can be heard through closed doors)? 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 Specify any problems Hx of Preganancy in last 3 No 07/21/25 14:04 Months Nurse Filling Out Transfusion VCHRISTIN 07/21/25 14:04 & Questions: Date: 07/21/25 07/21/25 14:04 Time: 14:06 07/21/25 14:04 Patient unable to answer at this time (ie. confused, unrespo /Reproduction History /Reproductive History - brand protection manager: /Reproductive Hx- brand protection manager Hx Now No 07/23/25 08:55 Gestational Age (in weeks): EDC: Hx Hx Para Hx Section SAB No 07/21/25 14:04 Does the father of the baby or his family experience fever w Father of the baby Malignant Hypertension history comment Active Medications Active Medications: Current Medications Generic Name Dose Route Start Last Admin Trade Name Freq PRN Reason Stop Dose Admin Lactated Ringer's 1,000 mls @ 15 mls/hr 07/23/25 09:15 07/23/25 09:17 IV 15 mls/hr .Q48H BRITTANY Administration PFSH Medical History Wears glasses Walker as ambulation aid Easy bruising Gastric reflux Non-smoker Sleep apnea History of edema History of echocardiogram Cardiology follow-up encounter Chronic diastolic (congestive) heart failure Arthritis GERD (gastroesophageal reflux disease) Hypokalemia Right bundle branch block (RBBB) Morbid (severe) obesity due to excess calories Home Medications Medication Instructions Recorded Last Taken Type calcium 600 mg (as 1 ea PO DAILY supplement 06/24 Unknown History carbonate)-vitamin D3 20 mcg (800 unit) tablet multivitamin with folic acid 400 1 tab PO DAILY vitami n 10/21/13 Unknown History mcg tablet cholecalciferol (vitamin D3) 50 50 mcg PO DAILY Unknown History mcg (2,000 unit) tablet loratadine 10 mg tablet 10 mg PO DAILY 11/22/19 Unkn own History metolazone 10 mg tablet 10 mg PO QODAY 02/21/23 Unkn own History bumetanide 1 mg tablet 1 mg PO DAILY #180 tabs 04/12 01/31 Unknown Rx omeprazole 40 mg capsule,delayed 40 mg PO QDAY #30 cap s 06/22/23 Unknown Rx release ibuprofen 200 mg tablet 600 mg PO DAILY 06/16/25 Unk nown History potassium chloride 20 mEq 40 meq PO TID 06/16/25 Unkno wn History tablet,extended release (K-Tab) Allergy/AdvReac Type Severity Reaction Status Date / Time naproxen (From Naprosyn) Allergy Mild Swelling Verified 07/23/25 09:13 rofecoxib (From Vioxx) Allergy Mild Swelling Verified 07/23/25 09:13 aspirin AdvReac Upset Verified 07/23/25 09:13 Stomach Family History Mother Heart disease Hypertension Cancer Father Heart disease Cancer Hypertension Seizures Surgical History Hx of colonoscopy History of eye surgery History of dilatation and curettage Social History (Updated 06/16/25 @ 13:33 by uYmiko Benitez) Smoking Status: Never smoker alcohol intake: never substance use type: does not use caffeine: Yes Type: tea Number of servings: 2 additional social history: takes ibuprofen daily Review of Systems (Anesthesia) ROS Narrative System reviewed and no additional complaints, except as documented. Physical Exam Const alert and oriented x3 Nutritional Appearance: morbidly obese Resp normal respiratory effort, normal air movement and clear to auscultation bilaterally Cardio regular rate, regular rhythm and no murmurs; Negative for diaphoretic
--- NOTE | 2025-07-23 09:45 | EGD_PTH ---
PATIENT: MAGI BURROUGHS LOC: EN U#:[id number] AGE/SX: 64/F ROOM: RE07/23/[address]: Dr. Emi Vogt MD : 1960 BED: DIS: 07/23/2025 SPEC #: [id number] RECD: 07/23/25 12:03 STATUS: MIKAYLA GAUTAM #: [id number] JUDSON: 07/23/25 09:[address]: Emi Vogt DEPT: SURGICAL PATHOLOGY RECD BY: Carlos Chang ENTERED: 07/23/25 13:45 SP TYPE: EGD BIOPSY BETH DR: Dr. Doris Pimentel MD Tissues: A - Gastric mucous membrane B - Esophagus, NOS Procedures: Immunohistochemical Stains Surgery Specimen Level IV HEADER OPERATION: EGD with biopsy PRE-OP DIAGNOSIS: Encounter for colonoscopy due to history of colon cancer, colon cancer TISSUE SUBMITTED: A- Antrum biopsy, B- GE junction biopsy MICROSCOPIC DIAGNOSIS A. Stomach, antrum, biopsies: - Oxyntic mucosa with slight chronic inflammation - An immunohistochemical stain for Helicobacter pylori is negative B. Gastroesophageal junction: - Benign squamous epithelium - Oxynto-cardiac mucosa with chronic inflammation - No goblet cell metaplasia is identified MICROSCOPIC DESCRIPTION Slides are reviewed. All matched controls reacted appropriately. These tests were developed and their performance characteristics determined by [facility]. They may not have been cleared or approved by the [place]. Food and Drug Administration. The FDA has determined that such clearance or approval is not necessary. The above immunohistochemical markers are viewed by the Pathologist. GROSS DESCRIPTION A. Received in fixative is one container labeled with the patient's name and designated, "Antrum biopsy." The specimen consists of one irregular fragment of littlejohn tissue that measures 0.4 cm. The specimen is totally submitted in one cassette. B. Received in fixative is one container labeled with the patient's name and designated, "GE junction biopsy." The specimen consists of two irregular fragments of littlejohn tissue, each measuring 0.3 cm. The specimen is totally submitted in one cassette. [place] 07/23/2025 CPT:[id number]
--- NOTE | 2025-07-23 10:31 | OP.PROVAT_ITS ---
07/23/2025 Doris Pimentel [address] [id number] Re : Upper GI endoscopy procedure for Angella Feldmanbury Dear Dr. Pimentel This procedure was performed on Wednesday, July 23, 2025. My impressions and recommendations are as follows: Impressions : - Z-line irregular, 32 cm from the incisors. Biopsied. - Erythematous mucosa in the antrum. Biopsied. - Normal examined duodenum. - Medium-sized hiatal hernia. Recommendations : - Await pathology results. - Discharge patient to home. - Resume previous diet. - Continue present medications. - Use sucralfate tablets 1 gram PO QID for 2 weeks. My findings are described in the full procedure note, which is enclosed. If I can be of further assistance, please feel free to contact me at Doctor phone number(s): , Work: . Sincerely, MD Emi Romero MD 07/23/2025 10:30:52 AM This report has been signed electronically.
--- NOTE | 2025-07-23 10:31 | OP.EGD_ITS ---
Patient Name: Angella Dougherty Procedure Date: 07/23/2025 10:03 AM Date of : 1960 Age: 64 Procedure: Upper GI endoscopy Indications: Lees's esophagus Providers: Emi Vogt MD Referring MD: Doris Pimentel Medicines: Monitored Anesthesia Care Patient Profile: This is a 64 year old female. Complications: No immediate complications. Procedure: Pre-Anesthesia Assessment: - Prior to the procedure, a History and Physical was performed, and patient medications and allergies were reviewed. The patient's tolerance of previous anesthesia was also reviewed. The risks and benefits of the procedure and the sedation options and risks were discussed with the patient. All questions were answered, and informed consent was obtained. Prior Anticoagulants: The patient has taken no anticoagulant or antiplatelet agents. ASA Grade Assessment: Per anesthesia. After reviewing the risks and benefits, the patient was deemed in satisfactory condition to undergo the procedure. After obtaining informed consent, the endoscope was passed under direct vision. Throughout the procedure, the patient's blood pressure, pulse, and oxygen saturations were monitored continuously. The Endoscope was introduced through the mouth, and advanced to the second part of duodenum. The upper GI endoscopy was accomplished without difficulty. The patient tolerated the procedure well. Scope In: 10:15:51 AM Scope Out: 10:23:31 AM Total Procedure Duration Time 0 hours 7 minutes 40 seconds Findings: The Z-line was irregular and was found 32 cm from the incisors. Biopsies were taken with a cold forceps for histology. Mildly erythematous mucosa without bleeding was found in the gastric antrum. Biopsies were taken with a cold forceps for histology. Biopsies were taken with a cold forceps for Helicobacter pylori cultures. The examined duodenum was normal. A medium-sized hiatal hernia was present. Impression: - Z-line irregular, 32 cm from the incisors. Biopsied. - Erythematous mucosa in the antrum. Biopsied. - Normal examined duodenum. - Medium-sized hiatal hernia. Recommendation: - Await pathology results. - Discharge patient to home. - Resume previous diet. - Continue present medications. - Use sucralfate tablets 1 gram PO QID for 2 weeks. Procedure Code(s): --- Professional --- 31441, PT, Esophagogastroduodenoscopy, flexible, transoral; with biopsy, single or multiple Diagnosis Code(s): --- Professional --- K22.89, Other specified disease of esophagus K31.89, Other diseases of stomach and duodenum K22.70, Lees's esophagus without dysplasia K44.9, Diaphragmatic hernia without obstruction or gangrene CPT copyright 2021 [employer] [employer]. All rights reserved. The codes documented in this report are preliminary and upon simulation technician review may be revised to meet current compliance requirements. MD Emi Romero MD 07/23/2025 10:30:52 AM This report has been signed electronically. Number of Addenda: 0 Note Initiated On: 07/23/2025 10:03 AM
--- NOTE | 2025-07-23 10:35 | PCM.POST.ANE ---
Anesthesia: Postop Eval I Current Vital Signs Temperature: 98 F Pulse Rate: 67 Blood Pressure: 111/55 Respiratory Rate: 16 Pulse Ox: 95 Oxygen Delivery Method: Room Air Assessment Airway patent: Yes Spontaneous unlabored respirations: Yes Mental status: Awake and Calm nausea: No Vomiting: No Anesthesia Complication: No Fluid Hydration Crystalloid volume administer (ml): 400 Total IV fluid infused: 400 Progress Note Anesthesia document: Postop Eval 1 completed: Yes
--- NOTE | 2025-07-23 10:37 | PCM.POSTANE2 ---
Anesthesia Postop Eval I Sum Postop Eval Completion status Anesthesia document: Postop Eval 1 completed: Yes Anesthesia Postop Eval I Summary Anesthesia Postop Eval I Summary: Anesthesia Postop Eval I: Assessment Summary Airway patent Yes 07/23/25 10:35 [email or web address] Spontaneous unlabored Yes 07/23/25 10:35 [email or web address] respirations Mental status Awake,Calm 07/23/25 10:35 [email or web address] nausea No 07/23/25 10:35 [email or web address] Vomiting No 07/23/25 10:35 [email or web address] Anesthesia Postop Eval I: Fluid Summary Crystalloid volume administer 400 07/23/25 10:35 [email or web address] (ml) Colloids volume administered ( ml) Blood Product volume administered (ml) Total IV fluid infused 400 07/23/25 10:35 [email or web address] Anesthesia Postop Eval I: Summary Notes Anesthesia Complication No 07/23/25 10:35 [email or web address] Anesthesia Complication Comment: Post-operative progress note Anesthesia: Postop Eval II Evaluation Mental status: Awake Pain Level: 0 nausea: No Vomiting: No Complications Anesthesia Complication: No
== END 2025-07-23 11:11 | disposition home or self-care (01) ==
LOC: EN 08:45 → AC 08:46
PROVIDERS: PCP Internal Medicine; Referring Provider Internal Medicine; Visit Provider Surgery
DX: K29.50 Unspecified chronic gastritis without bleeding (principal); I50.32 Chronic diastolic (congestive) heart failure; E66.01 Morbid (severe) obesity due to excess calories; K22.70 Barrett's esophagus without dysplasia; K44.9 Diaphragmatic hernia without obstruction or gangrene; Z79.899 Other long term (current) drug therapy; K21.00 Gastro-esophageal reflux disease with esophagitis, without bleeding
CPT/HCPCS: 43239; 88305; 88342; J2405